=== PATIENT | female | born 1945 | race Caucasian/White ===

== ENCOUNTER → 2016-06-03 12:07 | Outpatient (CLI) | payer MEDICARE, MEDICAID ==
[2015-12-04 10:24] VITALS: BMI 47.9
[~2016-06-03 12:07] MED LIST: ACETAMINOPHEN500 M1 PO; AMBIEN10 MG PO; CELEBREX200 MG PO; COMBIVENT RESPIM4 GM INH; CYCLOBENZAPRINE10 MG PO; CYMBALTA60 MG PO; DIOVAN320 MG PO; GLUCOPHAGE1000 MG PO; HUMULIN R100 U/ML SC; HYDROCODON-ACE1 EAC7 PO; HYDROCODONE-APA1 TAB PO; INSTA-GLUCOSE31 GM PO; OMNICEF300 MG PO; PRAVACHOL40 MG PO; PREDNISONE20 MG PO; PROAIR HFA8.5 GM INH; REQUIP1 MG PO; SINGULAIR10 MG PO; VERELAN180 MG PO
== END | disposition home or self-care (01) ==
LOC: D.RAD 12:07
DX: T17.928A Food in respiratory tract, part unspecified causing other injury, initial encounter (principal)

== ENCOUNTER → 2016-06-17 07:27 | Outpatient (CLI) | payer MEDICARE, MEDICAID ==
[2015-12-04 10:24] VITALS: BMI 47.9
== END ==
LOC: D.RT 06-16 08:00
DX: J44.9 Chronic obstructive pulmonary disease, unspecified (principal)

== ENCOUNTER → 2016-08-20 12:11 | Outpatient (CLI) | payer MEDICARE, MEDICAID ==
[2015-12-04 10:24] VITALS: BMI 47.9
== END | disposition home or self-care (01) ==
LOC: D.RAD 12:11
DX: T17.928A Food in respiratory tract, part unspecified causing other injury, initial encounter (principal)

== ENCOUNTER 2016-09-30 11:02 | Inpatient (IN) | payer MEDICARE, MEDICAID ==
[~2016-09-30] VITALS: Ht 160 cm; Wt 123.8 kg
--- NOTE | 2016-09-30 11:19 | NUR ---
RECEIVED PT TO ROOM 2102 VIA WHEELCHAIR, PT ORIENTED TO ROOM AND CALL LIGHT. INFORMED PT ABOUT THE USE OF SCD'S TO PREVENT BLOOD CLOTS. PT REFUSED TO WEAR SCD'S AT THIS TIME. STATES " I WILL WEAR THEM LATER". WILL DO ASSESSMENT AND START PLAN OF CARE.
[2016-09-30 12:36] VITALS: BP 150/75
[2016-09-30 12:41] VITALS: BP 150/75; Ht 160 cm; Wt 123.8 kg
[2016-09-30 12:45] LABS: BASOPHILS 0.3 % (0-2); EOSINOPHILS 2.1 % (0-7); HEMATOCRIT 33.3 % (36.0-48.0); HEMOGLOBIN 10.2 g/dL (12-16); IMMATURE GRANULOCYTES 0.4 % (0-5); LYMPHOCYTES 12.8 % (15-50); MCH 26.5 pg (26.0-34.0); MCHC 30.6 g/dL (31.0-37.0); MCV 86.5 fL (80.0-100.0); MEAN PLATELET VOLUME 9.3 fL (7.4-10.4); NEUTROPHILS 77.4 % (40-80); RBC 3.85 10x6/uL (4.00-5.40); RDW 15.4 % (11.5-14.5); WBC 9.7 10x3/uL (4.8-10.8)
[2016-09-30 12:46] LABS: PLATELET COUNT 391 10x3/uL (130-400)
[2016-09-30 13:10] LABS: ALKALINE PHOSPHATASE 81 U/L (46-116); ALT (SGPT) 17 U/L (10-68); BILIRUBIN - TOTAL 0.14 mg/dL (0.2-1.3); CALC OSMOLALITY 273 mosm/kg (275-300); CALCIUM 9.4 mg/dL (8.5-10.1); CARBON DIOXIDE 29.7 mmol/L (21.0-32.0); CHLORIDE - SERUM 99 mmol/L (98-107); CREATININE - SERUM 0.7 mg/dL (0.6-1.3); GLUCOSE 128 mg/dL (74-106); MAGNESIUM - SERUM 1.5 mg/dL (1.8-2.4); PROTEIN - SERUM 7.1 g/dL (6.4-8.2); SODIUM 136 mmol/L (136-145); UREA NITROGEN 12 mg/dL (7-18); eGFR NON AFRICAN AMERICAN 87 mL/min (90-120)
[2016-09-30 14:20] LABS: APPEARANCE HAZY (CLEAR); BILIRUBIN NEGATIVE (NEGATIVE); COLOR YELLOW (YELLOW); GLUCOSE NEGATIVE (NEGATIVE); KETONE NEGATIVE (NEGATIVE); LEUKOCYTE ESTERASE TRACE (NEGATIVE); NITRITE NEGATIVE (NEGATIVE); PROTEIN TRACE mg/dL (NEGATIVE); SPECIFIC GRAVITY 1.015 (1.005-1.020); UROBILINOGEN NORMAL (NORMAL)
[2016-09-30] MEDS ORDERED: DALIRESP500 MCG PO (14:21)
[2016-09-30] MEDS ORDERED: NEXIUM40 MG PO (14:22)
[2016-09-30 14:23] LABS: BACTERIA FEW /hpf (NONE SEEN); MUCUS >1+ /lpf (NONE SEEN); RED CELLS - URINE 0-5 /hpf (0-5); WHITE CELLS - URINE 0-5 /hpf (0-5)
--- NOTE | 2016-09-30 14:50 | NUR ---
PT PIV IN R HAND INFILTRATED DC WITH CATH TIP INTACT. RESITED PT TO LEFT FA 22G X1 STICK. DRESSING PLACED AND ADHERED TO THE THE SKIN SIGNED AND DATED. SWAB CAPS IN PLACE.
--- NOTE | 2016-09-30 15:20 | NUR ---
ADMINISTERED 325MG OF TYLENO FOR PAIN LEVEL OF 7/10. PT IN BED, IVF STARTED AGAIN AT THIS TIME. PT DENIES ANY OTHER NEEDS AT THIS TIME. CALL LIGHT IN REACH, NAD NOTED, WILL CONT TO MONITOR.
--- NOTE | 2016-09-30 16:18 | NUR ---
LEFT UPPER ARM IV, INFILTRATED AT THIS TIME. STOPPED IVF AND D/C IV, TIP INTACT, WILL START NEW IV SOON. PT DENIES ANY NEEDS AT THIS TIME. CALL LIGHT IN REACH, NAD NOTED, WILL CONTINUE TO MONITOR.
--- NOTE | 2016-09-30 17:09 | NUR ---
BLOOD SUGAR OF 124, NO COVERAGE NEEDED PER S/S. FAMILY AT BEDSIDE, PT DENIES ANY NEEDS AT THIS TIME. CALL LIIGHT IN REACH, NAD NOTED, WILL CONT TO MONITOR.
[2016-09-30 18:09] VITALS: BP 146/68
[2016-09-30 19:00] VITALS: BP 145/52
--- NOTE | 2016-09-30 19:15 | NUR ---
RECEIVED REPORT, PT MAG -1.5, WILL FOLLOW ELECTROLYTE PROCOL, ASKING FOR TYLENOL, BED IS LOW, SRX2, CALL LIGHT IN REACH, WILL CONTINUE CARE OF PLAN
--- NOTE | 2016-09-30 22:45 | NUR ---
CALL LIGHT IN REACH, WILL CONTINUE WITH PLAN OF CARE.
[2016-10-01] VITALS: BP 124/61
--- NOTE | 2016-10-01 03:45 | NUR ---
ASSESSMENT COMPLETE, SEE FLOWSHEET, BED IS LOW, SRX2, CALL LIGHT IN REACH,WILL CONTINUE PLAN OF CARE
[2016-10-01 04:00] VITALS: BP 125/54
[2016-10-01 05:58] LABS: BASOPHILS 0.2 % (0-2); EOSINOPHILS 2.1 % (0-7); HEMATOCRIT 31.9 % (36.0-48.0); HEMOGLOBIN 9.4 g/dL (12-16); IMMATURE GRANULOCYTES 0.2 % (0-5); LYMPHOCYTES 14.4 % (15-50); MCH 25.6 pg (26.0-34.0); MCHC 29.5 g/dL (31.0-37.0); MCV 86.9 fL (80.0-100.0); MEAN PLATELET VOLUME 9.3 fL (7.4-10.4); MONOCYTES 7.6 % (2-11); NEUTROPHILS 75.5 % (40-80); PLATELET COUNT 409 10x3/uL (130-400); RBC 3.67 10x6/uL (4.00-5.40); RDW 15.3 % (11.5-14.5); WBC 8.4 10x3/uL (4.8-10.8)
[2016-10-01 06:19] LABS: ALBUMIN 2.7 g/dL (3.4-5.0); ANION GAP 10.6 mmol/L (8-16); BILIRUBIN - TOTAL 0.15 mg/dL (0.2-1.3); CALCIUM 9.2 mg/dL (8.5-10.1); CARBON DIOXIDE 33.4 mmol/L (21.0-32.0); CREATININE - SERUM 0.8 mg/dL (0.6-1.3); MAGNESIUM - SERUM 1.5 mg/dL (1.8-2.4); PROTEIN - SERUM 6.5 g/dL (6.4-8.2)
--- NOTE | 2016-10-01 07:18 | NUR ---
AM ROUNDS- PT UP TO SIDE OF BED, ASKED FOR A CUP OF COFFEE. WILL PROVIDED PT WITH ONE. PT DENIES ANY OTHER NEEDS AT THIS TIME. CALL LIGHT IN REACH, NAD NOTED, WILL CONTINUE TO MONITOR.
[2016-10-01 08:06] VITALS: BP 138/72
--- NOTE | 2016-10-01 08:13 | NUR ---
ADMINISTERED MORNING MEDICATONS, PT UP TO SIDE OF BED, EATING BREAKFAST. MARSHALL FROM DIETARY IN TO SPEAK WITH PT. PT DENIES ANY NEEDS AT THIS TIME. CALL LIGHT IN REACH, NAD NOTED, WILL CONTINUE TO MONITOR.
--- NOTE | 2016-10-01 09:47 | NUR ---
NEW 22G IV STARTED TO RT FOREARM, DRESSING PLACED AND ADHERED TO SKIN,SIGNED AND DATED. IVF STARTED BACK UP TO INFUSE AT 75ML/HR. PT C/O HEADACHE ASKED IF SHE COULD HAVE TYLENOL. WILL TAKE TO SEE IF SHE CAN HAVE IT NOW AND WILL PROVIDE HE WITH SOME.
--- NOTE | 2016-10-01 09:51 | NUR ---
ADMINISTERED 650MG OF TYLENOL FOR PAIN LEVEL OF 7/10. PT IN BED, DENIES ANY NEEDS AT THIS TIME. CALL LIGHT IN REACH, NAD NOTED, WILL CONTINUE TO MONITOR.
[2016-10-01 12:12] VITALS: BP 155/72
[2016-10-01 15:56] VITALS: BP 140/53
[2016-10-01 19:00] VITALS: BP 127/58
--- NOTE | 2016-10-01 19:20 | NUR ---
RECEIVED REPORT, PT ASKING FOR TYLENOL, WILL GIVE WHEN TIME, BED IS LOW, SRX2, CALL LIGHT IN REACH, MAG.-1.5 WILL FOLLOW ELECTOLITE PROTOCOL, BED IS LOW, SRX2, CALL LIGHT IN REACH, WILL CONTINUE PLAN OF CARE
--- NOTE | 2016-10-01 20:30 | NUR ---
GAVE 650 MG TYLENOL FOR HEAD ACHE, WILL MONITOR
--- NOTE | 2016-10-01 23:16 | NUR ---
PT RESTING WELL WITHOUT C/O OR DISTRESS NOTED. CALL LIGHT WITHIN REACH. NO NEEDS VOICED. WILL CONT TO MONITOR.
[2016-10-02] VITALS: BP 127/62
[2016-10-02 04:00] VITALS: BP 138/60
[2016-10-02 05:30] LABS: BASOPHILS 0.4 % (0-2); EOSINOPHILS 2.6 % (0-7); HEMATOCRIT 31.1 % (36.0-48.0); HEMOGLOBIN 9.2 g/dL (12-16); IMMATURE GRANULOCYTES 0.4 % (0-5); LYMPHOCYTES 11.8 % (15-50); MCH 25.8 pg (26.0-34.0); MCHC 29.6 g/dL (31.0-37.0); MCV 87.4 fL (80.0-100.0); MEAN PLATELET VOLUME 9.3 fL (7.4-10.4); NEUTROPHILS 77.8 % (40-80); PLATELET COUNT 363 10x3/uL (130-400); RBC 3.56 10x6/uL (4.00-5.40); RDW 15.4 % (11.5-14.5); WBC 8.2 10x3/uL (4.8-10.8)
[2016-10-02 05:47] LABS: ALBUMIN 2.7 g/dL (3.4-5.0); ALKALINE PHOSPHATASE 73 U/L (46-116); ALT (SGPT) 16 U/L (10-68); BILIRUBIN - TOTAL 0.14 mg/dL (0.2-1.3); CALC OSMOLALITY 277 mosm/kg (275-300); CALCIUM 8.9 mg/dL (8.5-10.1); CARBON DIOXIDE 31.8 mmol/L (21.0-32.0); CHLORIDE - SERUM 103 mmol/L (98-107); GLUCOSE 120 mg/dL (74-106); POTASSIUM - SERUM 3.8 mmol/L (3.5-5.1); PROTEIN - SERUM 6.4 g/dL (6.4-8.2); SODIUM 140 mmol/L (136-145); UREA NITROGEN 8 mg/dL (7-18)
[2016-10-02 05:50] LABS: CREATININE - SERUM 0.5 mg/dL (0.6-1.3); eGFR NON AFRICAN AMERICAN > 90 mL/min (90-120)
--- NOTE | 2016-10-02 07:00 | NUR ---
RECEIVED REPORT. ASSUMED CARE OF PATIENT. CALL LIGHT KAMILAH ÁLVAREZ. PATIENT SITTING UP IN BED WITH ATTENTION TOWARD TELEVISON. ALERT/ORIENTED. DENIES NEEDS AT THIS TIME. NO DISTRESS.
[2016-10-02 08:26] VITALS: BP 133/57
[2016-10-02 11:58] VITALS: BP 150/62
[2016-10-02 15:53] VITALS: BP 141/50
--- NOTE | 2016-10-02 15:56 | NUR ---
PATIENT NOTIFIED OF THE NEED FOR A STOOL SAMPLE. HAT PLACED ON TOILET. PATIENT VERBALIZED HER UNDERSTANDING.
[2016-10-02 16:05] LABS: % SATURATION 9 % (15-55); IRON 26 ug/dl (35-150); TOTAL IRON BIND CAPACITY 267 ug/dl (260-445); UNSAT IRON BIND CAPACITY 241 ug/dl (150-375)
--- NOTE | 2016-10-02 19:00 | NUR ---
INITIAL ROUNDS MADE. PT SITTING UP IN BED WATCHING TV. DENIES NEEDS OR C/O AT THIS TIME. STOOL COLLECTED AND TAKEN TO LAB FOR OB. CALL LIGHT IN REACH. WILL CONT TO MONITOR.
[2016-10-02 20:20] VITALS: BP 148/73
[2016-10-03 00:09] VITALS: BP 124/52
[2016-10-03 04:15] VITALS: BP 154/79
--- NOTE | 2016-10-03 05:55 | NUR ---
PHLEBO IN ROOM FOR AM LAB DRAW.
[2016-10-03 06:10] LABS: BASOPHILS 0.2 % (0-2); EOSINOPHILS 2.7 % (0-7); HEMATOCRIT 31.7 % (36.0-48.0); HEMOGLOBIN 9.4 g/dL (12-16); IMMATURE GRANULOCYTES 0.2 % (0-5); LYMPHOCYTES 10.8 % (15-50); MCHC 29.7 g/dL (31.0-37.0); MCV 87.8 fL (80.0-100.0); MEAN PLATELET VOLUME 9.4 fL (7.4-10.4); MONOCYTES 7.7 % (2-11); NEUTROPHILS 78.4 % (40-80); PLATELET COUNT 410 10x3/uL (130-400); RBC 3.61 10x6/uL (4.00-5.40); RDW 15.5 % (11.5-14.5); WBC 8.5 10x3/uL (4.8-10.8)
[2016-10-03 06:35] LABS: ALBUMIN 2.8 g/dL (3.4-5.0); ALKALINE PHOSPHATASE 75 U/L (46-116); ALT (SGPT) 16 U/L (10-68); CALC OSMOLALITY 277 mosm/kg (275-300); CALCIUM 9.2 mg/dL (8.5-10.1); CHLORIDE - SERUM 101 mmol/L (98-107); CREATININE - SERUM 0.6 mg/dL (0.6-1.3); GLUCOSE 114 mg/dL (74-106); POTASSIUM - SERUM 3.7 mmol/L (3.5-5.1); PROTEIN - SERUM 6.6 g/dL (6.4-8.2); SODIUM 140 mmol/L (136-145); UREA NITROGEN 6 mg/dL (7-18); eGFR NON AFRICAN AMERICAN > 90 mL/min (90-120)
--- NOTE | 2016-10-03 07:10 | NUR ---
RECEIVED REPORT. ASSUMED CARE OF PATIENT. PATIENT SITTING UP IN BED HAVING COFFEE. RESP EVEN AND UNLABORED. CALL LIGHT WITHIN REACH. IV FLUIDS INFUSING ORDERED. DENIES NEEDS AT THIS TIME. NO DISTRESS.
[2016-10-03 07:23] VITALS: BP 150/81
--- NOTE | 2016-10-03 10:00 | NUR ---
PATIENT OOB AMBULATING WITH WALKER WITH PHYSICAL THERAPY. TOLERATES THERAPY WELL.
[2016-10-03 12:09] VITALS: BP 151/71
--- NOTE | 2016-10-03 15:53 | NUR ---
IV TUBING CHANGED, IV SITE DRESSING CHANGED AT THIS TIME. JLOOP RETAPED TO BETTER ACCOMODATE PATIENT. NO DISTRESS. DENIES NEEDS AT THIS TIME.
[2016-10-03 16:10] VITALS: BP 148/86
--- NOTE | 2016-10-03 16:34 | NUR ---
FSBS 103. NO INSULIN COVERAGE REQUIRED. NO DISTRESS.
--- NOTE | 2016-10-03 19:00 | NUR ---
INITIAL ROUNDS MADE. PT SITTING UP ON SIDE OF BED WATCHING TV. DENIES NEEDS OR C/O AT THIS TIME. CALL LIGHT IN REACH. WILL CONT TO MONITOR.
[2016-10-03 21:38] VITALS: BP 145/67
--- NOTE | 2016-10-04 00:27 | NUR ---
ELIGIBILITY SUPERVISOR AT BEDSIDE FOR VS. NEEDS ADDRESSED AT THIS TIME. CALL LIGHT IN REACH. WILL CONT TO MONITOR.
[2016-10-04 03:13] VITALS: BP 126/54
--- NOTE | 2016-10-04 04:58 | NUR ---
RESTING WELL WITH EYES CLOSED, CONT TO MONITOR.
[2016-10-04 05:43] LABS: BASOPHILS 0.2 % (0-2); EOSINOPHILS 2.7 % (0-7); HEMATOCRIT 32.5 % (36.0-48.0); HEMOGLOBIN 9.6 g/dL (12-16); IMMATURE GRANULOCYTES 0.4 % (0-5); LYMPHOCYTES 12.2 % (15-50); MCH 25.9 pg (26.0-34.0); MCHC 29.5 g/dL (31.0-37.0); MCV 87.8 fL (80.0-100.0); MEAN PLATELET VOLUME 9.6 fL (7.4-10.4); NEUTROPHILS 77.5 % (40-80); PLATELET COUNT 436 10x3/uL (130-400); RDW 15.5 % (11.5-14.5); WBC 8.5 10x3/uL (4.8-10.8)
[2016-10-04 06:33] LABS: ALBUMIN 2.8 g/dL (3.4-5.0); ALKALINE PHOSPHATASE 77 U/L (46-116); ALT (SGPT) 18 U/L (10-68); BILIRUBIN - TOTAL 0.18 mg/dL (0.2-1.3); CALC OSMOLALITY 275 mosm/kg (275-300); CALCIUM 9.1 mg/dL (8.5-10.1); CHLORIDE - SERUM 101 mmol/L (98-107); CREATININE - SERUM 0.7 mg/dL (0.6-1.3); GLUCOSE 104 mg/dL (74-106); POTASSIUM - SERUM 3.6 mmol/L (3.5-5.1); PROTEIN - SERUM 6.8 g/dL (6.4-8.2); SODIUM 140 mmol/L (136-145); UREA NITROGEN 5 mg/dL (7-18); eGFR NON AFRICAN AMERICAN 87 mL/min (90-120)
[2016-10-04 06:46] VITALS: BP 138/71
--- NOTE | 2016-10-04 07:58 | NUR ---
AM ROUNDS - PT IS AWAKE AND SITTING ON THE SIDE OF THE BED. IV TO RIGHT RA WITH NS @ 75CC/HR. O2 @ 3L VIA NC. NON SKID SOCKS ON. NO NEEDS AT THIS TIME. WILL CONTINUE TO MONITOR
[2016-10-04 08:25] VITALS: BP 113/54
--- NOTE | 2016-10-04 11:48 | NUR ---
Patient Name: EMILY ORTEGA Admission Status: Urgent Accout number: [id number] Admission Date: 09-30-2016 : 1945 Admission Diagnosis:CHRONIC OBSTRUCTIVE PULMON DISEASE W ACUTE LOWER RESP I Attending: WAGNER Current LOS: 4 Anticipated DC Date: 10-04-2016 Planned Disposition: Home Primary Insurance: [facility] Discharge Planning Comments: CM met with patient to assess discharge planning/needs. Patient states she lives alone in [facility] and uses the elevator. Patient also states that she has Shari Corona with [employer] that comes out to her house 2 days a week, along with a family member who lives in the same building if she needed anything and her daughter Leora Villarreal ([phone]) who is just a phone call away. She had already called her daughter to drive her home, because she is being discharge. Patient currently uses [facility] for her home O2. Patient stated that she has a cane, walker, shower chair, elevated toilet seat, bed side commode, along with a glucometer. Pt denies any other needs or HH at this time and she is returning to a safe environment. Television Presenter: Radha Guardado * Is the patient Alert and Oriented? Yes 0 * How many steps to enter\exit or inside your home? 0 0 * Preadmission Environment Home Alone 0 * ADLs Independent 0 * Equipment Cane Elevated [place] Seat Glucometer Oxygen Rolling Walker Shower Chair Walker 0 * List name and contact numbers for known caregivers / representatives who currently or will assist patient after discharge: Modesta Villarreal (daughter) [phone] Shari Corona (senior helper) 2 days a week 0 * Community resources currently utilized Other 0 * Please name any agencies selected above. [employer] 0 * Additional services required to return to the preadmission environment? No 0 * Can the patient safely return to the preadmission environment? Yes 0 * Has this patient been hospitalized within the prior 30 days at any hospital? No 0 Grand Total: 0
[2016-10-04] MEDS ORDERED: BREO ELLIPTA 11 EACH INH (12:01)
[2016-10-04] MEDS ORDERED: ARAVA10 MG PO (12:01)
[2016-10-04] MEDS ORDERED: PLAQUENIL200 MG PO (12:02)
[2016-10-04] MEDS ORDERED: OMNICEF300 MG PO (12:03)
[2016-10-04 13:03] VITALS: BP 150/66
--- NOTE | 2016-10-04 14:02 | NUR ---
D/C - WRITTEN AND VERBAL INSRUCTIONS GIVEN TO PT. PT D/C HOME WITH FAMILY MEMBER. LEFT FLOOR VIA WHEELCHAIR BY STAFF MEMBER. IV IN RIGHT FA, NS @ 75CC/HR. WILL D/C
[2016-10-05 08:22] LABS: FOLATE (FOLIC ACID) - SERUM 7.7 ng/mL (>3.0)
== END 2016-10-04 14:32 | disposition home or self-care (01) | DRG 190 ==
LOC: D.M2 11:02
PROVIDERS: ADMIT Family Medicine
DX: J44.0 Chronic obstructive pulmonary disease with (acute) lower respiratory infection (principal); J18.1 Lobar pneumonia, unspecified organism; Z68.42 Body mass index [BMI] 45.0-49.9, adult; I10 Essential (primary) hypertension; E78.5 Hyperlipidemia, unspecified; E66.01 Morbid (severe) obesity due to excess calories; D64.9 Anemia, unspecified; Z99.81 Dependence on supplemental oxygen

== ENCOUNTER 2016-10-18 21:02 | Emergency (ER) | payer MEDICARE, MEDICAID ==
[2016-09-30 12:41] VITALS: BMI 47.2
[~2016-10-18 21:02] MED LIST changes: +ARAVA10 MG PO; +BREO ELLIPTA 11 EACH INH; +DALIRESP500 MCG PO; +NEXIUM40 MG PO; +PLAQUENIL200 MG PO
== END 2016-10-18 23:14 | disposition home or self-care (01) ==
LOC: D.ER 21:02
DX: T46.7X5A Adverse effect of peripheral vasodilators, initial encounter (principal); J44.9 Chronic obstructive pulmonary disease, unspecified; I10 Essential (primary) hypertension; E11.9 Type 2 diabetes mellitus without complications; F17.200 Nicotine dependence, unspecified, uncomplicated

== ENCOUNTER → 2017-01-13 18:54 | Outpatient (CLI) | payer MEDICARE, MEDICAID ==
[2016-09-30 12:41] VITALS: BMI 47.2
== END | disposition home or self-care (01) ==
LOC: D.MAMMO 15:15
DX: Z12.31 Encounter for screening mammogram for malignant neoplasm of breast (principal)

== ENCOUNTER 2017-01-31 07:10 | Day surgery (SDC) | payer MEDICARE, MEDICAID ==
[~2017-01-31] VITALS: Ht 160 cm; Wt 118.2 kg
--- NOTE | ~2017-01-31 | OP ---
PATIENT NAME: EMILY ORTEGA MEDICAL RECORD: [id number] :44 LOCATION:[facility] ADMISSION DATE: SURGEON: TORIN DEAN DO DATE OF OPERATION: 01/31/2017 PROCEDURE: EGD with biopsies. INDICATIONS FOR PROCEDURE: Heartburn, nausea, epigastric abdominal pain. SCOPE: Olympus video gastroscope. MEDICATIONS: Propofol 100 mg IV per anesthesia. ESTIMATED BLOOD LOSS: Minimal. COMPLICATIONS: None. FINDINGS: Informed consent was given. The patient was made comfortable with the above medication. After reaching an adequate level of sedation by slow IV push, the patient was placed on her left side. The endoscope was then advanced under direct visualization through the mouth to the second portion of the duodenum. The entire esophagus appeared normal. At the GE junction, there was some very mild evidence of LA class A reflux-induced esophagitis. There was a medium-sized hiatal hernia involving the cardia, which was visible from the esophagus as well as retroflexion within the stomach. The fundus and body of the stomach appeared normal. In the antrum and prepyloric region, there was some erythema and granularity consistent with possible gastritis. Random biopsies were taken to submit for histology and to rule out H pylori. The endoscope was advanced beyond the pylorus into the duodenum where the bulb and second portion of the duodenum appeared normal. The endoscope was then withdrawn from the patient. The patient tolerated the procedure well and there were no complications. IMPRESSION: 1. LA class A reflux-induced esophagitis. 2. Medium size sliding hiatal hernia involving the cardia. 3. Erythema and granularity of the antrum consistent with possible gastritis, biopsies pending. PLAN AND RECOMMENDATIONS: 1. Discharge home when recovery parameters are met. 2. Follow up biopsy specimen results. 3. GERD diet and reflux precautions. 4. Consider referral to general surgery for further correction of the hiatal hernia, which is likely causing some of the patient's discomfort in her epigastric region. 5. Gastric emptying study regarding the nausea and abdominal pain and early satiety and fullness. 6. Further recommendations to follow findings from biopsies and radiologic studies. 7. Consider colonoscopy regarding the diarrhea, which is chronic. TRANSINT: Voice Confirmation ID: [id number] DOCUMENT ID: [id number] OPERATIVE REPORT [id number] EMILY ORTEGA TORIN DEAN DO CC: [id number] DICTATION DATE: 01/31/17 1126 FANS CLERK: 01/31/17 1322 [facility] 01/31/17 [place] [id number] [place] [id number]
[2017-01-31 08:51] LABS: CALC OSMOLALITY 274 mosm/kg (275-300); CARBON DIOXIDE 30.3 mmol/L (21.0-32.0); CHLORIDE - SERUM 99 mmol/L (98-107); CREATININE - SERUM 0.7 mg/dL (0.6-1.3); GLUCOSE 109 mg/dL (74-106); SODIUM 137 mmol/L (136-145); UREA NITROGEN 12 mg/dL (7-18); eGFR NON AFRICAN AMERICAN 87 mL/min (90-120)
[2017-01-31 08:52] LABS: BASOPHILS 0.3 % (0-2); HEMATOCRIT 32.1 % (36.0-48.0); HEMOGLOBIN 9.9 g/dL (12-16); IMMATURE GRANULOCYTES 0.1 % (0-5); LYMPHOCYTES 16.1 % (15-50); MCH 25.4 pg (26.0-34.0); MCHC 30.8 g/dL (31.0-37.0); MCV 82.5 fL (80.0-100.0); NEUTROPHILS 73.5 % (40-80); PLATELET COUNT 371 10x3/uL (130-400); RBC 3.89 10x6/uL (4.00-5.40); RDW 15.8 % (11.5-14.5); WBC 7.7 10x3/uL (4.8-10.8)
[2017-01-31 09:09] VITALS: BP 137/59; Ht 160 cm; Wt 118.2 kg
--- NOTE | 2017-01-31 11:35 | NUR ---
1135- PT RECEIVED SITTING UP WITH HOB ELEVATED. AAO. 2L O2 NC IN PLACE. VSS. FULL LIQUIDS OFFERED. FAMILY AT BEDSIDE WILL MONITOR.
--- NOTE | 2017-01-31 12:10 | NUR ---
1205- IV D/C'D, PT TOLERATED. CATHETER INTACT. WILL CONTINUE TO MONITOR.
--- NOTE | 2017-01-31 12:31 | NUR ---
1225- DISCHARGE INSTRUCTIONS GIVEN, PT VERBALIZED UNDERSTANDING. PAPERWORK COMPLETED. 1230- PT DISCHARGED VIA WHEELCHAIR
== END 2017-01-31 12:30 | disposition home or self-care (01) ==
LOC: D.OPS 07:10
PROVIDERS: Anesthesiology
DX: R10.13 Epigastric pain (principal); R11.0 Nausea; K21.0 Gastro-esophageal reflux disease with esophagitis; K44.9 Diaphragmatic hernia without obstruction or gangrene; F17.200 Nicotine dependence, unspecified, uncomplicated; I10 Essential (primary) hypertension; E11.9 Type 2 diabetes mellitus without complications; J44.9 Chronic obstructive pulmonary disease, unspecified; Z01.812 Encounter for preprocedural laboratory examination

== ENCOUNTER → 2017-02-03 13:45 | Outpatient (CLI) | payer MEDICARE, MEDICAID ==
[2017-01-31 09:09] VITALS: BMI 46.1
== END | disposition home or self-care (01) ==
LOC: D.NM 13:45
DX: R11.10 Vomiting, unspecified (principal); R10.9 Unspecified abdominal pain

== ENCOUNTER 2017-02-07 05:40 | Day surgery (SDC) | payer MEDICARE, MEDICAID ==
[~2017-02-07] VITALS: Ht 160 cm; Wt 118.2 kg
--- NOTE | ~2017-02-07 | OP ---
PATIENT NAME: EMILY ORTEGA MEDICAL RECORD: [id number] :44 LOCATION:[facility] ADMISSION DATE: SURGEON: TORIN DEAN DO DATE OF OPERATION: 02/07/2017 PROCEDURE: Colonoscopy with polypectomy and random biopsies. INDICATIONS FOR PROCEDURE: Altered bowel function and family history positive for colon cancer with her sister being diagnosed in her 60s. SCOPE: Olympus video pediatric colonoscope. MEDICATIONS: Propofol 1100mg IV per anesthesia. WITHDRAWAL TIME: 59 minutes. COMPLICATIONS: None. ESTIMATED BLOOD LOSS: Minimal. FINDINGS: Informed consent was given. The patient was made comfortable with the above medication. After reaching an adequate level of sedation by slow IV push, the patient was placed on her left side. A digital rectal examination was performed and was normal other than some small nonbleeding external hemorrhoids visualized. The endoscope was then advanced under direct visualization through the rectum to the cecum with visualization of the appendiceal orifice and ileocecal valve. The scope was slowly withdrawn and mucosa was carefully examined. Prep quality was good. There was evidence of moderate pandiverticulosis on this colonoscopy. Retroflexion was performed in the rectum with visualization of small nonbleeding internal hemorrhoids. On this examination, there were a total of 16 polyps removed. One was located in the cecum and it was a benign and sessile appearing polyp measuring approximately 3 mm in diameter. It was removed using hot forceps in 1 piece and completely retrieved. In the ascending colon, there were 2 other polyps, which were benign-appearing and sessile ranging in size from 3-5 mm in diameter. They were both removed using hot forceps in 1 piece and completely retrieved. In the transverse colon, there were seven separate polyps, which ranged in size from 5mm-12mm. They were all removed using hot snare in 1 piece and completely retrieved. In the descending colon, there were 5 polyps which ranged in size from 5mm-13mm in diameter. They were all removed using a hot snare in 1 piece and completely retrieved. In the rectum, there was a single polyp which was benign appearing and sessile, measuring approximately 5 mm in diameter. It was removed using a hot snare in 1 piece and completely retrieved. One of the ascending polyps left a small defect, which was closed with an Endoclip to prevent a complication. This was not a perforation and this was done simply to prevent post-polypectomy bleeding and complications due to the thin wall on that side of the colon. TRANSINT:[id number] Voice Confirmation ID: [id number] DOCUMENT ID: [id number] OPERATIVE REPORT [id number] EMILY ORTEGA NATHAN A DO CC: [id number] DICTATION DATE: 02/07/17936 OPHTHALMIC TECHNICIAN APPRENTICE: 02/07/17 1045 [facility] 02/07/17 [facility] [address] [place] [id number]
[2017-02-07 06:13] VITALS: BP 122/47; Ht 160 cm; Wt 118.2 kg
[2017-02-07 06:41] LABS: HEMATOCRIT 31.9 % (36.0-48.0); HEMOGLOBIN 9.9 g/dL (12-16); MCH 25.6 pg (26.0-34.0); MCV 82.4 fL (80.0-100.0); RBC 3.87 10x6/uL (4.00-5.40); RDW 15.8 % (11.5-14.5); WBC 7.8 10x3/uL (4.8-10.8)
[2017-02-07 07:03] LABS: CALC OSMOLALITY 273 mosm/kg (275-300); CALCIUM 9.7 mg/dL (8.5-10.1); CARBON DIOXIDE 30.6 mmol/L (21.0-32.0); CHLORIDE - SERUM 100 mmol/L (98-107); CREATININE - SERUM 0.5 mg/dL (0.6-1.3); GLUCOSE 118 mg/dL (74-106); POTASSIUM - SERUM 3.6 mmol/L (3.5-5.1); SODIUM 138 mmol/L (136-145); UREA NITROGEN 5 mg/dL (7-18); eGFR NON AFRICAN AMERICAN > 90 mL/min (90-120)
--- NOTE | 2017-02-07 10:03 | NUR ---
1000-RECD FROM GI LAB, ALERT. RESP WITH EASE. UP TO BATHROOM, VOIDS AND PASSES GAS. 1003-FULL LIQUIDS SERVED.
== END 2017-02-07 10:34 | disposition home or self-care (01) ==
LOC: D.OPS 05:40
PROVIDERS: Anesthesiology
DX: K63.5 Polyp of colon (principal); Z80.0 Family history of malignant neoplasm of digestive organs; I10 Essential (primary) hypertension; E11.9 Type 2 diabetes mellitus without complications; J44.9 Chronic obstructive pulmonary disease, unspecified; K21.9 Gastro-esophageal reflux disease without esophagitis; E66.01 Morbid (severe) obesity due to excess calories; Z68.42 Body mass index [BMI] 45.0-49.9, adult; Z01.812 Encounter for preprocedural laboratory examination; K62.1 Rectal polyp

== ENCOUNTER 2017-02-20 19:08 | Inpatient (IN) | payer MEDICARE, MEDICAID ==
[2017-02-20 20:10] LABS: BASOPHILS 0.1 % (0-2); EOSINOPHILS 0.4 % (0-7); HEMATOCRIT 32.4 % (36.0-48.0); HEMOGLOBIN 10.2 g/dL (12-16); IMMATURE GRANULOCYTES 0.3 % (0-5); LYMPHOCYTES 7.2 % (15-50); MCH 25.5 pg (26.0-34.0); MCHC 31.5 g/dL (31.0-37.0); MEAN PLATELET VOLUME 8.9 fL (7.4-10.4); MONOCYTES 7.8 % (2-11); NEUTROPHILS 84.2 % (40-80); PLATELET COUNT 359 10x3/uL (130-400); RDW 15.6 % (11.5-14.5); WBC 16.6 10x3/uL (4.8-10.8)
[2017-02-20 20:38] LABS: ALBUMIN 3.1 g/dL (3.4-5.0); ALKALINE PHOSPHATASE 81 U/L (46-116); ALT (SGPT) 15 U/L (10-68); CALC OSMOLALITY 268 mosm/kg (275-300); CALCIUM 9.1 mg/dL (8.5-10.1); CARBON DIOXIDE 30.5 mmol/L (21.0-32.0); CHLORIDE - SERUM 96 mmol/L (98-107); CREATININE - SERUM 0.8 mg/dL (0.6-1.3); GLUCOSE 158 mg/dL (74-106); POTASSIUM - SERUM 4.2 mmol/L (3.5-5.1); PROTEIN - SERUM 6.4 g/dL (6.4-8.2); SODIUM 132 mmol/L (136-145); UREA NITROGEN 14 mg/dL (7-18); eGFR NON AFRICAN AMERICAN 75 mL/min (90-120)
[2017-02-20 20:40] LABS: CREATINE KINASE 32 UL (21-215); MAGNESIUM - SERUM 1.5 mg/dL (1.8-2.4); PRO BNP 236 pg/mL (0-125); TROPONIN-I < 0.017 ng/mL (0.000-0.060)
--- NOTE | 2017-02-20 23:12 | NUR ---
REPORT RECEIVED FROM ADRIANNA BURKETT. KWADWO STATES PT HAS RECEIVED LASIX 40MG AND IS CURRENTLY RECEIVING MAG 2MG RIDERS, AND WILL HANG THE LEVAQUIN AFTER THE MAGNESIUM IS COMPLETE. CURRENTLY WAITING FOR PTS ARRIVAL.
[2017-02-20 23:37] LABS: APPEARANCE CLEAR (CLEAR); BILIRUBIN NEGATIVE (NEGATIVE); COLOR YELLOW (YELLOW); GLUCOSE NEGATIVE (NEGATIVE); KETONE NEGATIVE (NEGATIVE); NITRITE NEGATIVE (NEGATIVE); PROTEIN NEGATIVE (NEGATIVE); UROBILINOGEN NORMAL (NORMAL)
[2017-02-20 23:54] VITALS: BP 115/55; BMI 38.1
[2017-02-21] VITALS (7 sets, daily range): BP systolic 101–145; BP diastolic 48–75; BMI 38.0
--- NOTE | 2017-02-21 00:43 | NUR ---
PT RECEIVED VIA STRETCHER FROM ER @ 0290 02/20/17 AWAKE, ALERT, ORIENTED. PT WAS ABLE TO AMBULATE WITH ASSIST FROM STRETCHER TO BED. PT DEMONSTRATES GENERALIZED WEAKNESS WITH INCREASED SOB. PT ASKED FROM WATER, AND WAS ASSISTED TO BEDSIDE COMMODE. PT DENIES ANY OTHER NEEDS. PER NEW ORDER, WILL HOLD PT NPO. CONTINUE TO MONITOR CLOSELY. BED LOW, CALL LIGHT IN REACH, SIDE RAILS X 2, HOB 35 DEGREES.
--- NOTE | 2017-02-21 00:50 | NUR ---
PT IS C/O HEADACHE, NOTHING GIVEN IN ER. MEDICAL DEVICE, GLENNA RUBIO NOTIFIED FOR FURTHER ORDERS. TYLENOL #3 ORDERED PRN. WILL ADMINISTER AND CONTINUE TO MONITOR CLOSELY.
[2017-02-21] MEDS ORDERED: REGLAN5 MG PO (00:54)
--- NOTE | 2017-02-21 01:27 | NUR ---
DISCUSSED WITH PT THE ORDER FOR NPO STATUS R/T POSSIBLE UPCOMING BRONCH LATER THIS MORNING. PT AGREED THAT SHE WOULD NOT EAT OR DRINK ANYTHING FURTHER. CONTINUE TO MONITOR.
[2017-02-21] MEDS ORDERED: TYLENOL W/CODEI1 TAB PO (03:09)
--- NOTE | 2017-02-21 03:30 | NUR ---
PT LYING ON LEFT SIDE, EYES CLOSED, RESPIRATIONS EVEN AND UNLABORED. CONTINUE TO MONITOR CLOSELY.
--- NOTE | 2017-02-21 07:15 | NUR ---
RECIEVED REPORT ON PATIENT, PATIENT IS ALERT AND ORIENTED AT THIS TIME. PATIENT HAS A R HAND IV THAT IS SL AT THIS TIME. PATIENT IS ON 3L/MIN VIA NC OF O2 WITH NAD NOTED AT THIS TIME. PATIENT DENIES ANY NEEDS OR COMPLAINTS AT THIS TIME. BED IS LOW AND LOCKED. CALL LIGHT IN REACH. CPOC
--- NOTE | 2017-02-21 09:15 | NUR ---
MORNING MEDICATION GIVEN, ASSESSMENT DONE. PATIENT DENIES ANY NEEDS. BED LOW AND LOCKED, CALL LIGHT IN REACH. CPOC.
--- NOTE | 2017-02-21 10:00 | NUR ---
SPOKE WITH DR BELL REGARDING PATIENT, AND HIS CONSULT.
--- NOTE | 2017-02-21 11:17 | NUR ---
ASSISTED PATIENT TO BEDSIDE COMMODE. SOB ON EXERTION. O2 SAT 94% ON 3L/MIN VIA NC. WILL CONT TO MONITOR PATIENT. PATIENT BACK TO BED. BED LOW AND LOCKED. FAMILY AT BEDSIDE. CPOC
--- NOTE | 2017-02-21 11:46 | NUR ---
PATIENT REFUSES SCDS AT THIS TIME. STATES SHE "IS GETTING UP TO THE BATHROOM TOO MUCH BECAUSE OF THE LASIX" WE DISCUSSED THAT SHE WOULD WEAR AT NIGHT WHEN SLEEPING. CPOC
--- NOTE | 2017-02-21 12:45 | NUR ---
PATIENT PREOP FOR SURGERY. CONSENTS SIGNED. CPOC
--- NOTE | 2017-02-21 12:50 | NUR ---
PATIENT GONE FOR SURGERY. CPOC
--- NOTE | 2017-02-21 14:46 | NUR ---
INFORMED NEISHA BROUSSARD THAT MEDS HAVE NOT BEEN ADDRESSED, SHE STATED THAT WHEN PATIENT GETS BACK FROM SURGERY, SHE WOULD ADDRESS.
--- NOTE | 2017-02-21 15:48 | OP ---
PATIENT NAME: EMILY ORTEGA MEDICAL RECORD: [id number] :44 LOCATION:[facility]. D.2131 ADMISSION DATE:02/20/17 SURGEON: SANDRA BELL MD DATE OF OPERATION: 02/21/2017 SURGEON: Sandra Bell MD PREOPERATIVE DIAGNOSES: 1. Left pleural effusion. 2. Complete collapse of the left lung. 3. Right mainstem occlusion. POSTOPERATIVE DIAGNOSES: 1. Left pleural effusion. 2. Complete collapse of the left lung. 3. Right mainstem occlusion. PROCEDURE PERFORMED: 1. Bronchoscopy. 2. Left chest tube thoracostomy. ANESTHESIA: General. COMPLICATIONS: None. SPECIMENS: 1. Pleural cytology. 2. Pleural cultures. 3. Tracheal cytology. Case is contaminated. ESTIMATED BLOOD LOSS: 20 cc. OPERATIVE COURSE: After consent was obtained, the patient was taken to the operating room and placed in the supine position on the operative table. Next, general anesthesia was given via endotracheal intubation. After a timeout was taken to confirm the correct patient and procedure, the left chest wall was prepped and draped in normal sterile fashion. A 20 cc of local anesthetic were administered. Skin incisions made with a 15-blade scalpel. Dissection continued down to the level of the pleural fascia using electrocautery. The fourth and fifth ribs were identified. The pleural space was encountered. There was immediate return of 600 cc of pleural fluid. Pleural fluid was collected and sent for both cytology and microbiology. A 32-Indonesian chest tube was placed towards the apex of the chest and then secured to the skin using 0 silk suture. It was wrapped in Xeroform gauze, sterile gauze, and tape. The chest tube was connected to a Pleur-Evac device and secured. Next, the bronchoscope was passed down to the 8-Indonesian ET tube into the main stem bronchus. The right mainstem was evaluated. The right upper and right lower lobe were both patent. The scope was advanced in the left lobe. There was almost near complete stenosis of the left main stem bronchus. The lesion was able to be visualized when sterile saline was injected, but the scope could not pass across the lesion. A wire was passed across the lesion. The area was copiously suctioned. The Lukens trap was attached, air was suctioned and irrigated. Biopsies could not be obtained secondary to the friability of the OPERATIVE REPORT [id number] EMILY ORTEGA lesion. At this time, the lesion was copiously irrigated and suctioned. The bronchoscope was removed, the procedure was terminated. At the end of the case, all needle and instrument counts were correct. No complications occurred. The patient was extubated and transferred to the PACU in stable condition. TRANSINT:[id number] Voice Confirmation ID: [id number] DOCUMENT ID: [id number] SANDRA BELL MD at 1548 CC: [id number] DICTATION DATE: 02/21/17 1423 ONCOLOGY REP SPECIALIST: 02/21/17 1449 ADM IN [facility] [address] [id number]
--- NOTE | 2017-02-21 15:50 | NUR ---
PATIENT BACK TO ROOM, PATIENT IS ALERT AND ORIENTED AT THIS TIME. PATIENT IS ON 10L/MIN VIA OXIMIZER, O2 SAT 94%. PATIENT HAS A CHEST TUBE TO L CHEST WITH 100CC OF PINK FLUID IN DRAINAGE CHAMBER. PATIENT DENIES ANY NEEDS OR PAIN. PATIENT HOOKED UP TO FREQUENT VITAL SIGNS. WILL CONT TO MONITOR PATIENT. CPOC
--- NOTE | 2017-02-21 16:03 | NUR ---
TRIED TO DC RR ORDERS TOOK ME TOTALLY OUT OF CHART 4 TIMES
--- NOTE | 2017-02-21 16:45 | NUR ---
FSBS 170, 2 UNITS OF HUMALOG GIVEN. CPOC
--- NOTE | 2017-02-21 18:05 | NUR ---
PATIENT GIVEN TYLENOL 3 FOR PAIN 9/10 AT CHEST TUBE SITE. PATIENT DENIES ANY OTHER NEEDS. VS STABLE AT THIS TIME. BP 122/69 RR 20 O2 SAT 96% HR 103. CPOC
--- NOTE | 2017-02-21 19:10 | NUR ---
ROUNDING NOTE: PT LAYING IN BED AWAKE, ALERT, ORIENTED X3. OXYGEN 10L VIA HIGH FLOW OXYMIZER NASAL CANNULA. PT W/ LEFT CHEST TUBE D/T COMPLETE LEFT LUNG COLLAPSE. YANKAUER SUCTION AT BEDSIDE. RIGHT HAND SALINE LOC. PT REQUESTING BEDPAN, BUT WAS ALREADY INCONTINENT OF STOOL. DID VOID X1 IN BEDPAN WELL. PT CLEANED UP, DID BECOME SOB WITH BED MOBILITY. NOW LAYING IN BED COMFORTABLE. DENIES ANY NEEDS. WILL CONT TO MONITOR.
[2017-02-22] VITALS: BP 99/49
[2017-02-22 04:10] VITALS: BP 111/53
[2017-02-22 04:50] LABS: HEMATOCRIT 31.9 % (36.0-48.0); HEMOGLOBIN 10.1 g/dL (12-16); MCH 25.3 pg (26.0-34.0); MCHC 31.7 g/dL (31.0-37.0); MCV 79.9 fL (80.0-100.0); MEAN PLATELET VOLUME 9.4 fL (7.4-10.4); PLATELET COUNT 398 10x3/uL (130-400); RBC 3.99 10x6/uL (4.00-5.40); RDW 15.7 % (11.5-14.5); WBC 21.6 10x3/uL (4.8-10.8)
[2017-02-22 05:19] LABS: ANION GAP 12.7 mmol/L (8-16); CALCIUM 8.9 mg/dL (8.5-10.1); CREATININE - SERUM 0.9 mg/dL (0.6-1.3); MAGNESIUM - SERUM 1.6 mg/dL (1.8-2.4); PHOSPHOROUS 3.5 mg/dL (2.5-4.9); POTASSIUM - SERUM 3.7 mmol/L (3.5-5.1)
[2017-02-22 05:52] LABS: LYMPHOCYTES 4 % (15-50); MONOCYTES 3 % (2-11); NEUTROPHILS 92 % (40-80); PLATELET ESTIMATE NORMAL
--- NOTE | 2017-02-22 07:30 | NUR ---
RECEIVED PT IN BED RESTING WITH EYES CLOSED RESP UNLABORED O2 ON PER 10 LITER PER OXIMIZER NAD NOTED
[2017-02-22 07:55] VITALS: BP 153/87
[2017-02-22 11:22] VITALS: BP 87/49
--- NOTE | 2017-02-22 11:53 | NUR ---
FSBS 190 HUMALOG 2 UNITS GIVEN SQ LT ARM
[2017-02-22 15:55] VITALS: BP 139/51
--- NOTE | 2017-02-22 16:57 | NUR ---
FSBS 142
--- NOTE | 2017-02-22 16:58 | NUR ---
FSBS 174 PT NPO AT THIS TIME
[2017-02-22 19:00] VITALS: BP 84/42
--- NOTE | 2017-02-22 19:10 | NUR ---
ROUNDING NOTE: PT IS AAOX3. PT IS BACK UP TO 10L OXYGEN VIA HIGH FLOW NASAL CANNULA OXYMIZER. ON MONITOR, SHE IS SINUS TACHY IN 100-120'S. PT CONTINUES TO BE VERY SOB WITH MINIMAL EXERTION. SHE FEELS VERY WIPED OUT AFTER HAVING MULTIPLE TESTS DONE TODAY. PLAN IS FOR BRONCH AND RE-BIOPSY TOMORROW. PT HAS RIGHT HAND SALINE LOC, RECEIVING IV CEFEPIMINE & LEVAQUIN. STILL HAS LEFT CHEST TUBE TO LWS. WILL CONT TO MONITOR.
[2017-02-23 00:55] VITALS: BP 83/43
[2017-02-23 04:02] VITALS: BP 90/51
[2017-02-23 05:44] LABS: BASOPHILS 0.1 % (0-2); EOSINOPHILS 0.9 % (0-7); HEMATOCRIT 31.5 % (36.0-48.0); HEMOGLOBIN 10.2 g/dL (12-16); IMMATURE GRANULOCYTES 0.6 % (0-5); LYMPHOCYTES 4.6 % (15-50); MCH 25.8 pg (26.0-34.0); MCHC 32.4 g/dL (31.0-37.0); MCV 79.5 fL (80.0-100.0); MEAN PLATELET VOLUME 9.4 fL (7.4-10.4); MONOCYTES 7.4 % (2-11); NEUTROPHILS 86.4 % (40-80); PLATELET COUNT 438 10x3/uL (130-400); RBC 3.96 10x6/uL (4.00-5.40); RDW 15.8 % (11.5-14.5); WBC 20.5 10x3/uL (4.8-10.8)
[2017-02-23 05:50] LABS: INR 1.11 (0.85-1.17); PROTIME 14.1 SECONDS (11.6-15.0)
[2017-02-23 05:51] LABS: APTT 36.2 SECONDS (22.8-39.4)
[2017-02-23 06:03] LABS: CALCIUM 9.3 mg/dL (8.5-10.1); CARBON DIOXIDE 28.6 mmol/L (21.0-32.0); CHLORIDE - SERUM 90 mmol/L (98-107); GLUCOSE 135 mg/dL (74-106); MAGNESIUM - SERUM 1.9 mg/dL (1.8-2.4); POTASSIUM - SERUM 3.3 mmol/L (3.5-5.1); SODIUM 130 mmol/L (136-145); TROPONIN-I < 0.017 ng/mL (0.000-0.060); eGFR NON AFRICAN AMERICAN 23 mL/min (90-120)
[2017-02-23 06:13] LABS: CALC OSMOLALITY 266 mosm/kg (275-300); CREATININE - SERUM 2.2 mg/dL (0.6-1.3); PHOSPHOROUS 4.6 mg/dL (2.5-4.9); UREA NITROGEN 25 mg/dL (7-18)
--- NOTE | 2017-02-23 07:30 | NUR ---
RECEIVED PT IN BED AAOX4 UP TO BSC VOIDED X1 TOLERATED WELL OXIMIZER ON WITH O2 AT 10 LPM NC NAD NOTED WILL CONTINUE TO MONITOR
[2017-02-23 07:45] VITALS: BP 91/53
--- NOTE | 2017-02-23 11:28 | NUR ---
FSBS 126
[2017-02-23 11:37] VITALS: BP 93/48
[2017-02-23 16:08] VITALS: BP 105/63
--- NOTE | 2017-02-23 18:55 | NUR ---
ROUNDING NOTE: AT CHANGE OF SHIFT, PT IS UP SITTING AT EDGE OF BED. SHE IS WEARING 10L OXYGEN VIA HIGH FLOW NASAL CANNULA OXYMIZER. PT CONTINUES WITH VERY DIMINISHED/ABSENT BREATH SOUNDS ON THE LEFT DUE TO COMPLETE LEFT LUNG COLLAPSE WITH LEFT CHEST TUBE IN PLACE. PT WITH C/O LEFT SIDED CHEST/BREAST PAIN LIKELY DUE TO CHEST TUBE AND PULMONARY ISSUES. CARDIAC ENZYMES NEGATIVE. EKG DONE LAST NIGHT AND REPEATED AGAIN TODAY UNREMARKABLE, NORMAL EKG, NSR. SBP REMAINS SOFT, BUT SLIGHTLY IMPROVED SINCE YESTERDAY. NO MONITOR, SINUS TACHY, HR 90-110. PT GIVEN TYLENOL #3 FOR NONCARDIAC CP WITH IMPROVEMENT. WILL CONT TO MONITOR.
[2017-02-23 20:32] VITALS: BP 95/46
[2017-02-24 00:05] VITALS: BP 86/39
[2017-02-24 05:21] VITALS: BP 109/54
[2017-02-24 05:32] LABS: BASOPHILS 0.1 % (0-2); EOSINOPHILS 1.5 % (0-7); HEMATOCRIT 28.8 % (36.0-48.0); HEMOGLOBIN 9.4 g/dL (12-16); IMMATURE GRANULOCYTES 0.5 % (0-5); LYMPHOCYTES 4.6 % (15-50); MCH 25.5 pg (26.0-34.0); MCHC 32.6 g/dL (31.0-37.0); MCV 78.3 fL (80.0-100.0); MEAN PLATELET VOLUME 8.9 fL (7.4-10.4); MONOCYTES 8.3 % (2-11); PLATELET COUNT 380 10x3/uL (130-400); RBC 3.68 10x6/uL (4.00-5.40); RDW 15.7 % (11.5-14.5)
[2017-02-24 05:43] LABS: WBC 15.1 10x3/uL (4.8-10.8)
[2017-02-24 05:58] LABS: ANION GAP 14.2 mmol/L (8-16); CARBON DIOXIDE 28.6 mmol/L (21.0-32.0)
[2017-02-24 06:10] LABS: POTASSIUM - SERUM 3.8 mmol/L (3.5-5.1)
--- NOTE | 2017-02-24 07:15 | NUR ---
AM ROUNDING DONE WITH PATIENT LAYING ON LEFT SIDE, ON 8L PER OXIMIZER. NO IV ACCESS AT PRESENT TIME. NIGHT NURSE AVTAR IS ATTEMPTING IV. ON HEART MONITIR SHOWING SR, HR 84. BILATERAL SCD'S ARE IN USE. LEFT CHEST TUBE WITH C/D/I DRESSING SEEN WITH LOW WALL SUCTION. ON EP WITH K+ 3.8. WILL MONITOR.
--- NOTE | 2017-02-24 07:41 | NUR ---
PT'S IV BLEW WHILE FLUSHING IT AFTER HER 0600 DOSE OF LASIX. NURSE IMPLANT COORDINATOR YVONNE RESTARTED IV W/ 20G TO RIGHT AC. PT'S SBP WAS 109 PRIOR TO THE LASIX. DISCUSSED WITH CLINIC LICENSED PRACTICAL NURSE ABOUT GIVING LASIX SINCE PT'S BP HAS BEEN RUNNING LOW W/ SBP IN THE 80'S AND 90'S. SINCE BP HAD IMPROVED THIS AM, THE DOSE OF LASIX WAS DILUTED AND PUSHED SLOWLY. NOW PT'S SBP HAS DROPPED IN THE 70'S. DAY SHIFT RN AWARE OF SITUATION.
[2017-02-24 07:45] VITALS: BP 77/44
--- NOTE | 2017-02-24 07:48 | NUR ---
RT AC WITH 20 G X 1 STICK PER JOEL BYRNE RN .
--- NOTE | 2017-02-24 11:35 | NUR ---
WHILE IN ANOTHER ROOM I COULD HEAR THE PATIENT COUGHING HARD. CHECKED ON THIS PATIENT AND SHE STATES THAT SHE HAS COUGHED UP SOME LIGHT WHITE WITH RED STREAKS AND A LITTLE BROWN TO IT. THE UPPER LEFT WHEEZING I HAD HEARD EARILER IN ASSESSMENT IS NOW GONE AT THIS TIME. WILL CONTINUE TO MONITOR.
[2017-02-24 11:50] VITALS: BP 91/50
--- NOTE | 2017-02-24 14:42 | NUR ---
[facility] BE [facility] TO [facility].
--- NOTE | 2017-02-24 15:07 | NUR ---
RECEIVED INFORMATION FROM DR VALDES THAT THE PATIENT WAS GOING TO BE TRANSFERING TO [facility] WITH DX: OBSTRUCTIVE LESION, TO INTERVENTIONAL LASER SOFTWARE COMPUTER SPECIALIST DR DAVID HOSKINS. CALL WAS PLACED TO ADRIANNA HORTONLETTERER. HE OBTAINED ADMINISTRATIVE APPROVAL FROM ADRIANNA ARANA. CALL WAS PLACED TO DR HOSKINS'S NURSE ELIZABETH GOOD AT [phone]. SHE REQUESTED RECORDS BE FAXED TO [phone]. RECORDS WERE SENT. SHE STATED THAT SOMEONE SHOULD CALL ME WITHIN 30-45 MINUTES FROM BED CONTROL. SHE ALSO STATED THAT SHE WOULD HAVE PATIENT SET UP FOR [facility] WITH INTERVENTION FOR TOMORROW. SHE IS UNSURE IF SHE WILL BE ACCEPTED TONIGHT OR TOMORROW EARLY AM. I WILL BE NOTIFIED OF THIS BY BED CONTROL. NEISHA BROUSSARD CNP FOR DR SAUCEDO HAS BEEN GIVEN THIS UPDATE. WILL UPDATE FURTHER AFTER TALKING WITH BED CONTROL.
--- NOTE | 2017-02-24 15:15 | NUR ---
Patient Name: EMILY ORTEGA Admission Status: ER Accout number: [id number] Admission Date: 02-20-2017 : 1945 Admission Diagnosis:OTHER PULMONARY COLLAPSE Attending: BONIFACIO CURTIS Current LOS: 4 Anticipated DC Date: 02-24-2017 Planned Disposition: Acute Care Hospital Primary Insurance: [facility] PLANNED EXTERNAL PROVIDER: [facility] Discharge Planning Comments: * Is the patient Alert and Oriented? Yes 0 * How many steps to enter\exit or inside your home? NONE 0 * PCP DR. SCHERER 0 * Pharmacy [facility] 0 * Preadmission Environment Home Alone 0 * ADLs Independent 0 * Equipment Nebulizer Oxygen 0 * Other Equipment HOME AND PORTABLE OXYGEN [facility]ALTHCARE MEDICAL - MEDICAL EQUENT PROVIDER 0 * List name and contact numbers for known caregivers / representatives who currently or will assist patient after discharge: JULIO HAN, DAUGHTER, 0 * Community resources currently utilized None 0 * Please name any agencies selected above. NONE 0 * Additional services required to return to the preadmission environment? Yes * Can the patient safely return to the preadmission environment? Yes 0 * Has this patient been hospitalized within the prior 30 days at any hospital? No [address] VALDES WHO REPORTS PT NEEDS TRANSFER TO [facility] ([facility], ACCEPTED BY DR. DAVID HOSKINS, WILL NEED INTERVENTAL PULMONOLOGY AND EQUIPMENT FOR SURGERY IS NOT AVAILABLE AT [place]. ADRIANNA STONER NOTIFIED. CM SPOKE TO PT IN ROOM TO DISCUSS DISCHARGE PLANNING AND NEEDS. PT REPORTS LIVING AT HOME INDEPENDENTLY AND ALONE. PT HAS ELEVATED TOILET SEAT, GLUCOMETER, HOME AND PORTABLE OXYGEN, ROLLING WALKER, WHOWER CHAIR AND A WALKER FROM [employer]. PT HAS NO OUTSIDE SERVICES ASSISTING IN THE HOME. CM DISCUSSED HOSPITAL TRANSFER. PT REPORTS DISCUSSING WITH DR. VALDES AND IS IN AGREEMENT WITH TRANSFER TO [facility] FOR THE NEEDED SURGERY. PT WILL NOTIFY HER DAUGHTER OF TRANSFER. IMPORTANT MESSAGE FROM MEDICARE PROVIDED AND EXPLAINED. CM SPOKE TO ADRIANNA STONER WHO REPORTS WAITING ON A CALL FROM [facility] BED CONTROL FOR BED AVAILABILITY. Environmental Planning Engineer: Kaveh Ratliff
[2017-02-24 15:40] VITALS: BP 99/62
[2017-02-24] MEDS ORDERED: MAXIPIME 2 GM/D52 G1 IV (16:12)
[2017-02-24] MEDS ORDERED: ALBUTEROL2.5 MG/3 M UPD (16:12)
[2017-02-24] MEDS ORDERED: IPRAT-ALBUT 0.5-3 ML INH (16:13)
[2017-02-24] MEDS ORDERED: BROVANA15 MCG/2 M INH (16:13)
[2017-02-24] MEDS ORDERED: MUCOMYST 20200 MG/M2 PO (16:14)
[2017-02-24] MEDS ORDERED: PULMICORT0.5 MG/21 UPD (16:14)
--- NOTE | 2017-02-24 17:14 | NUR ---
CALLED PURCHASING AGENT [employer] TO COME SIGN THE [employer] TRANSFER BACK AGREEMENT SO I CAN FAX IT BACK FOR A ROOM NUMBER.
--- NOTE | 2017-02-24 17:22 | NUR ---
FAXED [employer] TRANSFER AGREEMENT BACK.
--- NOTE | 2017-02-24 17:37 | NUR ---
URINE SENT TO LAB ORDERED.
--- NOTE | 2017-02-24 19:00 | NUR ---
REC REPORT, ASSUMED CARE OF PATIENT. SITTING ON BEDSIDE. ORIENTED X 4. ON 02 AT 8L/OXIMIZER. IV IN R AC INTACT WITH BICARB INFUSING AT 125ML/HR. LEFT CHEST TUBE DRSG C/DI SET TO LOW INTERMITTANT SUCTION. TELEMETRY LEADS IN PLACE, SHOWS SR ON MONITOR. DENIES PAIN OR ANY NEEDS.
[2017-02-24 20:00] VITALS: BP 96/57
[2017-02-24 20:11] LABS: CREATININE - URINE 166.3 mg/dL (30-125)
--- NOTE | 2017-02-24 23:32 | NUR ---
Spoke with [facility] bed control for update on getting room for patient who is to be admitted there by 0600 02/25/17. Was told that they can't give room number out at this time because patient can't arrive before 0600 due to orders. Explained that nurse got report from [facility] LOADER that they wanted pt npo after midnight with all heparin stopped for procedure tomorrow. Was informed that they will call us at [phone] with room number. Explained to her that the time patient will arrive after that, will depend on ambulance availability. Bed control stated she understood.
[2017-02-25] VITALS: BP 102/54
--- NOTE | 2017-02-25 00:15 | NUR ---
ASSISTED TO BSC. ACKNOWLEDGES THAT SHE IS NOW NPO.
--- NOTE | 2017-02-25 00:30 | NUR ---
MADE CHART COPIES FOR [facility].
--- NOTE | 2017-02-25 04:58 | NUR ---
[facility] CALLED WITH BED #[id number] ON UNIT 7B. GAVE REPORT TO STEPHANIE VALLEJO RN. [facility] PICKED UP PATIENT TO TRANSPORT.
--- NOTE | 2017-02-25 05:03 | NUR ---
CALLED PATIENT'S DAUGHTER SALEEM PER HER REQUEST TO GENERATOR OPERATOR STRAIGHT BEVEL GEAR PERSONAL ITEMS. PATIENT TOOK HER CLOTHES, SHOES, PHONE, PURSE AND PERSONAL OXYGEN EQUIPMENT.
[2017-02-28 13:12] LABS: OSMOLALITY - URINE 403 (())
== END 2017-02-25 05:06 | disposition short-term general hospital, planned readmission (82) | DRG 163 ==
LOC: D.ER 19:08 → D.M2 21:08
PROVIDERS: Emergency Medicine; Family Medicine; Internal Medicine Pulmonary Disease; Surgery; ADMIT Family Medicine
PROC: 0BD78ZX Extraction of Left Main Bronchus, Via Natural or Artificial Opening Endoscopic, Diagnostic (ICD-10-PCS; principal; 2017-02-21 16:15)
PROC: 0B9L00Z Drainage of Left Lung with Drainage Device, Open Approach (ICD-10-PCS; 2017-02-21 16:15)
DX: J98.19 Other pulmonary collapse (principal); J18.9 Pneumonia, unspecified organism; J44.0 Chronic obstructive pulmonary disease with (acute) lower respiratory infection; E87.1 Hypo-osmolality and hyponatremia; J96.11 Chronic respiratory failure with hypoxia; J98.11 Atelectasis; Z99.81 Dependence on supplemental oxygen; R91.1 Solitary pulmonary nodule; K21.9 Gastro-esophageal reflux disease without esophagitis; M19.90 Unspecified osteoarthritis, unspecified site; G25.81 Restless legs syndrome; I11.0 Hypertensive heart disease with heart failure; I50.9 Heart failure, unspecified; E11.65 Type 2 diabetes mellitus with hyperglycemia; E66.01 Morbid (severe) obesity due to excess calories; Z68.38 Body mass index [BMI] 38.0-38.9, adult; I25.10 Atherosclerotic heart disease of native coronary artery without angina pectoris; E88.01 Alpha-1-antitrypsin deficiency; M79.7 Fibromyalgia; E83.42 Hypomagnesemia; D50.9 Iron deficiency anemia, unspecified; J30.9 Allergic rhinitis, unspecified; I95.9 Hypotension, unspecified; E87.6 Hypokalemia; Z87.891 Personal history of nicotine dependence

== ENCOUNTER 2017-02-25 18:15 | Inpatient (IN) | payer MEDICARE, MEDICAID ==
[~2017-02-25 18:15] MED LIST changes: +ALBUTEROL2.5 MG/3 M UPD; +BROVANA15 MCG/2 M INH; +IPRAT-ALBUT 0.5-3 ML INH; +MAXIPIME 2 GM/D52 G1 IV; +MUCOMYST 20200 MG/M2 PO; +PULMICORT0.5 MG/21 UPD; +REGLAN5 MG PO; +TYLENOL W/CODEI1 TAB PO
[2017-02-25 20:00] VITALS: BP 141/64
[2017-02-25 20:59] VITALS: BP 141/64; BMI 43.0
[2017-02-26] VITALS (7 sets, daily range): BP systolic 112–133; BP diastolic 34–89; BMI 42.9
--- NOTE | 2017-02-26 06:24 | NUR ---
PATIENT SLEPT MOST OF THE NIGHT WITH NO COMPLAINTS. CHEST TUBE TO THE LEFT SIDE SECURED WITH FOAM TAPE. SUCTION SET TO 20mmHg. 6LPM OXIMIZER HAS BEEN WORN ALL NIGHT. PATIENT IS STABLE WHILE AMBULATING BUT DOES ASK FOR HELP BECAUSE OF THE LINES ATTACHED TO HER.
--- NOTE | 2017-02-26 07:18 | NUR ---
AWAKE AND ALERT AND UP IN CHAIR AT THIS TIME. CHEST TUBE TO 20CM OF SUCTION. PT REPORTS THAT COLLECTION CANISTER HAS BEEN KNOCKED OVER MULTIPLE TIMES. NOTIFIED UPHOLSTERY CUTTER THAT NEW COLLECTION CHAMBER WAS NEEDED FOR ACCURATE MEASUREMENT OF OUTPUT FROM CHEST TUBE. DENIES NEEDS AT THIS TIME. OXYGEN ON 6L VIA OXYMIZER. WILL CONTINUE WITH PLAN OF CARE.
[2017-02-26 12:02] LABS: BASOPHILS 0.2 % (0-2); EOSINOPHILS 3.7 % (0-7); HEMOGLOBIN 9.4 g/dL (12-16); IMMATURE GRANULOCYTES 1.3 % (0-5); LYMPHOCYTES 8.9 % (15-50); MCH 25.2 pg (26.0-34.0); MCHC 31.3 g/dL (31.0-37.0); MCV 80.4 fL (80.0-100.0); MONOCYTES 9.6 % (2-11); NEUTROPHILS 76.3 % (40-80); RBC 3.73 10x6/uL (4.00-5.40); RDW 15.8 % (11.5-14.5); WBC 11.1 10x3/uL (4.8-10.8)
[2017-02-26 12:04] LABS: PLATELET COUNT 478 10x3/uL (130-400)
[2017-02-26 12:17] LABS: ALBUMIN 2.4 g/dL (3.4-5.0); ANION GAP 11.5 mmol/L (8-16); BILIRUBIN - TOTAL 0.29 mg/dL (0.2-1.3); CALCIUM 9.4 mg/dL (8.5-10.1); CARBON DIOXIDE 31.3 mmol/L (21.0-32.0); CREATININE - SERUM 1.1 mg/dL (0.6-1.3); POTASSIUM - SERUM 3.8 mmol/L (3.5-5.1); PROTEIN - SERUM 7.2 g/dL (6.4-8.2)
--- NOTE | 2017-02-26 12:25 | NUR ---
CHEST TUBE COLLECTION SYSTEM CHANGED AND PLACED TO WATER SEAL AT THIS TIME PER DR VALDES'S ORDER. SECURED COLLECTION SET TO IV POLE SO THAT IT COULD NOT BE KNOCKED OVER EASILY.
--- NOTE | 2017-02-26 15:00 | NUR ---
DRESSING TO CHEST TUBE CHANGED AT THIS TIME.
--- NOTE | 2017-02-27 01:30 | NUR ---
PATIENT RESTING IN BED WITH EYES CLOSED AND NO VISIBLE SIGNS OF DISTRESS. BED IN LOWEST POSITION AND CALL LIGHT WITHIN REACH.
[2017-02-27 03:57] VITALS: BP 120/63
[2017-02-27 06:07] LABS: % SATURATION 11 % (15-55); IRON 31 ug/dl (35-150); TOTAL IRON BIND CAPACITY 263 ug/dl (260-445); UNSAT IRON BIND CAPACITY 232 ug/dl (150-375)
[2017-02-27 06:24] LABS: ALBUMIN 2.5 g/dL (3.4-5.0); ANION GAP 11.7 mmol/L (8-16); BILIRUBIN - TOTAL 0.27 mg/dL (0.2-1.3); CALCIUM 9.4 mg/dL (8.5-10.1); CARBON DIOXIDE 29.7 mmol/L (21.0-32.0); CREATININE - SERUM 0.9 mg/dL (0.6-1.3); PROTEIN - SERUM 7.1 g/dL (6.4-8.2); THYROID STIMULATING HORMONE 1.33 uIU/mL (0.36-3.74)
[2017-02-27 06:25] LABS: POTASSIUM - SERUM 4.4 mmol/L (3.5-5.1)
[2017-02-27 06:26] LABS: BASOPHILS 0.2 % (0-2); EOSINOPHILS 3.6 % (0-7); HEMOGLOBIN 10.1 g/dL (12-16); IMMATURE GRANULOCYTES 2.1 % (0-5); LYMPHOCYTES 9.4 % (15-50); MCH 25.4 pg (26.0-34.0); MCHC 31.6 g/dL (31.0-37.0); MCV 80.6 fL (80.0-100.0); MEAN PLATELET VOLUME 9.2 fL (7.4-10.4); MONOCYTES 13.7 % (2-11); PLATELET COUNT 406 10x3/uL (130-400); RBC 3.97 10x6/uL (4.00-5.40); WBC 11.8 10x3/uL (4.8-10.8)
--- NOTE | 2017-02-27 08:00 | NUR ---
SHIFT ASSESSMENT COMPLETE. PATIENT ALERT/ORIENTED X 3. SITTING UP IN CHAIR EATING BREAKFAST. NO COMPLAINTS AT THIS TIME. CALL LIGHT IN REACH. WILL CONTINUE TO MONITOR.
[2017-02-27 08:38] VITALS: BP 157/66
[2017-02-27 12:08] VITALS: BP 115/50
[2017-02-27 16:16] VITALS: BP 118/59
[2017-02-27 19:55] VITALS: BP 127/50
[2017-02-28 04:01] VITALS: BP 152/68
[2017-02-28 05:33] LABS: BASOPHILS 0.1 % (0-2); EOSINOPHILS 3.4 % (0-7); HEMATOCRIT 29.7 % (36.0-48.0); HEMOGLOBIN 9.1 g/dL (12-16); IMMATURE GRANULOCYTES 2.7 % (0-5); LYMPHOCYTES 8.1 % (15-50); MCH 25.2 pg (26.0-34.0); MCHC 30.6 g/dL (31.0-37.0); MCV 82.3 fL (80.0-100.0); MEAN PLATELET VOLUME 8.6 fL (7.4-10.4); MONOCYTES 10.1 % (2-11); NEUTROPHILS 75.6 % (40-80); PLATELET COUNT 450 10x3/uL (130-400); RBC 3.61 10x6/uL (4.00-5.40); RDW 16.1 % (11.5-14.5)
[2017-02-28 05:50] LABS: ALBUMIN 2.5 g/dL (3.4-5.0); BILIRUBIN - TOTAL 0.2 mg/dL (0.2-1.3); CALCIUM 9.4 mg/dL (8.5-10.1); CARBON DIOXIDE 29.6 mmol/L (21.0-32.0); CREATININE - SERUM 0.8 mg/dL (0.6-1.3); POTASSIUM - SERUM 4.6 mmol/L (3.5-5.1); PROTEIN - SERUM 6.8 g/dL (6.4-8.2)
--- NOTE | 2017-02-28 07:35 | NUR ---
PT AOX4 RESP EVEN AND NONLABORED PT DENIES NEEDS AT THIS TIME IV TO LEFT HAND PATENT AND INTACT AT THIS TIME SRX2 BED AT LOWEST SETTING CALL LIGHT WITHIN REACH WILL CONTINUE TO MONITOR
--- NOTE | 2017-02-28 07:48 | NUR ---
PT RESTING QUIETLY, EYES CLOSED. RESP EVEN, UNLABORED. NO DISTRESS NOTED. CONTINUE OBSTETRICS NURSE'S PLAN OF CARE. =
[2017-02-28 08:15] VITALS: BP 135/69
[2017-02-28 12:09] VITALS: BP 135/65
--- NOTE | 2017-02-28 16:13 | NUR ---
Patient Name: EMILY ORTEGA Admission Status: Elective Accout number: [id number] Admission Date: 02-25-2017 : 1945 Admission Diagnosis: Attending: AZRA SCHERER Current LOS: 3 Anticipated DC Date: 03-03-2017 Planned Disposition: Home with Home Health Primary Insurance: [facility] Discharge Planning Comments: CM MET WITH PATIENT REGARDING D/C NEEDS AND PLANS. PATIENT STATED SHE LIVES ALONE AND HAS NO STEPS OR STAIRS AT HER HOME. PATIENT STATED SOMEONE WILL DRIVE HER HOME AT DISCHARGE. PATIENT STATED SHE IS INDEPENDENT WITH HER CARE AND HAS A WALKER, CANE, NEBULIZER, OXYGEN, PORTABLE O2, AND BS COMMODE AT HOME. PATIENTS PCP IS DR. SCHERER AND PHARMACY IS [facility]. PATIENT HAS SENIOR HELPERS THAT COME TO HER HOME 2 DAYS A WEEK FOR 3HRS A DAY. PATIENT HAS SIGNED THE KEVIN FORM FOR [facility] WHEN DISCHARGED. PCP DR. [facility]- [phone] SALEEM PENALOZA (DAUGHTER) [phone] Senior Enterprise Architect: Shweta Xavier Is the patient Alert and Oriented? Yes 0 * How many steps to enter\exit or inside your home? 0 0 * PCP DR. SCHERER 0 * Pharmacy [facility] 0 * Preadmission Environment Home Alone 0 * ADLs Independent 0 * Equipment Bedside Commode Cane Nebulizer Oxygen Walker 0 * Other Equipment PORTABLE O2 0 * List name and contact numbers for known caregivers / representatives who currently or will assist patient after discharge: SALEEM PENALOZA [phone] (DAUGHTER) 0 * Community resources currently utilized Other 0 * Please name any agencies selected above. [facility] [employer] 2 DAYS WEEK FOR HRS 0 * Additional services required to return to the preadmission environment? Yes 0 * Can the patient safely return to the preadmission environment? Yes 0 * Has this patient been hospitalized within the prior 30 days at any hospital? No 0 Grand Total: 0
[2017-02-28 16:56] VITALS: BP 126/66
[2017-02-28 20:00] VITALS: BP 130/65
--- NOTE | 2017-02-28 22:42 | NUR ---
REC'D SITTING UP IN BED. ALERT AND ORIENTED X4. DENIED PAIN AT THIS TIME. DENIED NEEDS AT THIS TIME. INSTRUCTED TO CALL IF NEEDED ANYTING VERBALIZED UNDERSTANDING. NO DISTRESS NOTED. BED LOW, LOCKED, CALL LIGHT IN REACH.
[2017-03-01] VITALS: BP 144/72
--- NOTE | 2017-03-01 01:39 | NUR ---
EYES CLOSED RESPIRATIONS WITH EASE AND UNLABORED. SR UP X2 CALL LIGHT WITHIN REACH.
[2017-03-01 04:00] VITALS: BP 134/70
[2017-03-01 05:20] LABS: BASOPHILS 0.2 % (0-2); EOSINOPHILS 3.6 % (0-7); HEMATOCRIT 29.3 % (36.0-48.0); HEMOGLOBIN 8.9 g/dL (12-16); IMMATURE GRANULOCYTES 5.5 % (0-5); MCH 25.4 pg (26.0-34.0); MCHC 30.4 g/dL (31.0-37.0); MCV 83.7 fL (80.0-100.0); MEAN PLATELET VOLUME 8.6 fL (7.4-10.4); MONOCYTES 10.5 % (2-11); NEUTROPHILS 70.2 % (40-80); PLATELET COUNT 401 10x3/uL (130-400); RDW 16.4 % (11.5-14.5); WBC 8.8 10x3/uL (4.8-10.8)
[2017-03-01 06:00] LABS: ALBUMIN 2.4 g/dL (3.4-5.0); ANION GAP 9.8 mmol/L (8-16); BILIRUBIN - TOTAL 0.19 mg/dL (0.2-1.3); CALCIUM 9.3 mg/dL (8.5-10.1); CARBON DIOXIDE 30.7 mmol/L (21.0-32.0); CREATININE - SERUM 0.8 mg/dL (0.6-1.3); POTASSIUM - SERUM 4.5 mmol/L (3.5-5.1); PROTEIN - SERUM 6.5 g/dL (6.4-8.2)
--- NOTE | 2017-03-01 07:30 | NUR ---
ASSESSMENT COMPLETE. SL TO L HAND. L CHEST TUBE TO WATERSEAL. SCD'S IN USE TO BILAT LEGS. O2 6L PER OXIMIZER IN USE. DENIES ANY NEEDS AT PRESENT.
[2017-03-01 08:20] LABS: FOLATE (FOLIC ACID) - SERUM 8.1 ng/mL (>3.0)
[2017-03-01 09:06] VITALS: BP 142/78
--- NOTE | 2017-03-01 11:30 | NUR ---
SITTING UP IN CHAIR VISITING WITH FRIEND. DENIES ANY NEEDS AT THIS TIME.
[2017-03-01 12:27] VITALS: BP 131/65
--- NOTE | 2017-03-01 15:00 | NUR ---
NUTRITION F/U CHART REVIEWED. PT TOLERATING ADA DIET. 75 TO 100% INTAKE RECENT MEALS. WILL CONTINUE TO PROVIDE CURRENT DIET, MONITOR PO INTAKE. RD FOLLOWING
--- NOTE | 2017-03-01 15:02 | NUR ---
TYLENOL #3 GIVEN FOR COMPLAINT OF PAIN. SITTING UP IN CHAIR. DR SALDIVAR BY TO SEE PATIENT.
[2017-03-01 16:14] VITALS: BP 133/89
--- NOTE | 2017-03-01 19:45 | NUR ---
PATIENT IS AWAKE, ALERT AND ORIENTED X'S 4. RESPIRATIONS ARE EVEN AND UNLABORED ON 6.5L/MIN OXYMIZER. CHEST TUBE APPEARS INTACT. PATIENT AMBULATED TO THE BATHROOM AND BACK TO BED INDEPENDENTLY. NO SIGNS OF DISTRESS NOTED. GAIT STEADY. PATIENT DENIES NEEDS.
[2017-03-01 20:00] VITALS: BP 120/48
--- NOTE | 2017-03-01 21:10 | NUR ---
ADMINISTERED SCHEDULED MEDICATION. ADMINISTERED HUMALOG PER SLIDING SCALE. GAVE PATIENT CAHI CRACKERS AND PEANUT BUTTER FOR A HS SNACK. PATIENT DENIES NEEDS.
[2017-03-02 05:08] LABS: BASOPHILS 0.1 % (0-2); EOSINOPHILS 3.6 % (0-7); HEMATOCRIT 29.5 % (36.0-48.0); IMMATURE GRANULOCYTES 3.8 % (0-5); LYMPHOCYTES 10.1 % (15-50); MCH 25.6 pg (26.0-34.0); MCHC 30.5 g/dL (31.0-37.0); MCV 83.8 fL (80.0-100.0); MEAN PLATELET VOLUME 8.8 fL (7.4-10.4); MONOCYTES 8.5 % (2-11); NEUTROPHILS 73.9 % (40-80); RBC 3.52 10x6/uL (4.00-5.40); RDW 16.4 % (11.5-14.5); WBC 9.2 10x3/uL (4.8-10.8)
[2017-03-02 05:09] LABS: PLATELET COUNT 490 10x3/uL (130-400)
[2017-03-02 05:40] LABS: ALBUMIN 2.4 g/dL (3.4-5.0); ALKALINE PHOSPHATASE 77 U/L (46-116); ALT (SGPT) 24 U/L (10-68); BILIRUBIN - TOTAL 0.11 mg/dL (0.2-1.3); CALC OSMOLALITY 278 mosm/kg (275-300); CARBON DIOXIDE 32.7 mmol/L (21.0-32.0); CHLORIDE - SERUM 100 mmol/L (98-107); CREATININE - SERUM 0.7 mg/dL (0.6-1.3); GLUCOSE 133 mg/dL (74-106); PROTEIN - SERUM 5.9 g/dL (6.4-8.2); SODIUM 138 mmol/L (136-145); UREA NITROGEN 14 mg/dL (7-18); eGFR NON AFRICAN AMERICAN 87 mL/min (90-120)
[2017-03-02 05:41] LABS: POTASSIUM - SERUM 5.3 mmol/L (3.5-5.1)
--- NOTE | 2017-03-02 07:30 | NUR ---
PT AOX4 RESP EVEN AND NONLABORED PT DENIES NEEDS AT THIS TIME IV TO RIGHT HAND PATENT AND INTACT AT THIS TIME SRX2 BED AT LOWEST SETTING CALL LIGHT WITHIN REACH WILL CONTINUE TO MONITOR
[2017-03-02 08:43] VITALS: BP 143/70
[2017-03-02 15:51] VITALS: BP 118/60
--- NOTE | 2017-03-02 17:09 | OP ---
PATIENT NAME: EMILY ORTEGA MEDICAL RECORD: [id number] :44 LOCATION:[id number] ADMISSION DATE:02/25/17 SURGEON: SANDRA BELL MD DATE OF OPERATION: 03/02/2017 PREOPERATIVE DIAGNOSES: 1. Squamous cell carcinoma of the lung. 2. Collapse left lung. POSTOPERATIVE DIAGNOSES: 1. Squamous cell carcinoma of the lung. 2. Collapse left lung. PROCEDURES PERFORMED: 1. Bronchoscopy with left mainstem bronchial stent placement. 2. Left subclavian PowerPort placement. 3. Left chest tube removal. ANESTHESIA: General. COMPLICATIONS: None. SPECIMENS: None. Case was clean. ESTIMATED BLOOD LOSS: 30 cc. ANESTHESIA: General. OPERATIVE COURSE: After consent was obtained, the patient was taken to the operating room and placed in supine position on the operating table. Next, general anesthesia was given via endotracheal intubation. Thereafter, a timeout was performed confirming the correct patient and procedure. The bronchoscope was passed through the endotracheal tube. Once the trachea was identified, the left mainstem was identified. Bronchoscope was advanced into the left main stem bronchus to the area of occlusion. The C-arm was used at this time for the remaining portion of the procedure. The proximal portion lesion was marked with fluoroscopy. The bronchus was injected with normal saline. Once injected, the guidewire was placed. Under fluoroscopic guidance, in the left lower lobe of the lung, the lesion was marked. A [employer] 18 x 60 mm bronchial stent was passed over the guidewire under fluoroscopic guidance. The stent was deployed. The deployment device was removed as well as the guidewire. The bronchoscope was reinserted. We put the bronchoscope down her nose. The stent was deployed. There was significant tension on the stent. The left mainstem airway was partially opened, but enough to pass the stent. The left middle and lower lobe opening, there was significant tumor beyond the length of the stent. The secondary and tertiary bronchus were copiously irrigated and suctioned. At this time, the bronchoscope was removed. PEEP was then added to the ventilator circuit. At this time, the left chest wall was prepped and draped in typical sterile fashion. Local anesthetic was injected. The left subclavian vein was cannulated on the first pass. The wire was passed through the needle under fluoroscopic guidance and advanced to the atriocaval junction. The needle was removed. The catheter and dilator were then passed over the wire in a standard Seldinger fashion under fluoroscopic guidance. Skin incisions made with a 15 OPERATIVE REPORT [id number] EMILY ORTEGA scalpel. Dissection continued to the pectoralis fascia using electrocautery. The tunneling device was used to tunnel the catheter from the skin incision site to the needle stick site. Catheter was cut to length. The catheter was advanced through the breakaway sheath under fluoroscopic guidance to the atriocaval junction. The breakaway sheath was removed. The port was secured to the pectoralis fascia using interrupted 2-0 Prolene suture and the port was accessed. Blood was aspirated and it was then flushed with 30 mL of normal saline with 5000 units of heparin. The wound was copiously irrigated and suctioned. It was closed in multiple layers. Deep fascia was closed with 3-0 Vicryl suture, superficial fascia with 2-0 Vicryl suture. Skin was closed with 4-0 Monocryl, Mastisol and Steri-Strips. The port was then accessed, blood was aspirated. The port was then again flushed with 10 cc of normal saline. Next, the left chest tube was removed with a pressure dressing in place consisting of Xeroform gauze and sterile 4 x 4s, secured in place with silk tape. At the end of the procedure, all needle and instrument counts were correct. The patient was extubated and transferred to the PACU in stable condition. TRANSINT:[id number] Voice Confirmation ID: [id number] DOCUMENT ID: [id number] SANDRA BELL MD at 1709 CC: [id number] DICTATION DATE: 03/02/17 1520 MOBILE HOME LOT UTILITY WORKER: 03/02/17 1657 ADM IN [facility] [address] [place] [address]
[2017-03-02 17:19] LABS: ALBUMIN 2.5 g/dL (3.4-5.0); ALKALINE PHOSPHATASE 76 U/L (46-116); ALT (SGPT) 21 U/L (10-68); BILIRUBIN - TOTAL 0.12 mg/dL (0.2-1.3); CALC OSMOLALITY 276 mosm/kg (275-300); CALCIUM 9.1 mg/dL (8.5-10.1); CARBON DIOXIDE 32.8 mmol/L (21.0-32.0); CHLORIDE - SERUM 100 mmol/L (98-107); CREATININE - SERUM 0.7 mg/dL (0.6-1.3); GLUCOSE 134 mg/dL (74-106); POTASSIUM - SERUM 4.6 mmol/L (3.5-5.1); PROTEIN - SERUM 6.6 g/dL (6.4-8.2); SODIUM 138 mmol/L (136-145); UREA NITROGEN 11 mg/dL (7-18); eGFR NON AFRICAN AMERICAN 87 mL/min (90-120)
[2017-03-02 20:00] VITALS: BP 140/55
[2017-03-03] VITALS: BP 145/62
[2017-03-03 04:00] VITALS: BP 144/66
[2017-03-03 06:32] LABS: BASOPHILS 0.1 % (0-2); EOSINOPHILS 2.1 % (0-7); HEMATOCRIT 29.6 % (36.0-48.0); HEMOGLOBIN 8.9 g/dL (12-16); IMMATURE GRANULOCYTES 2.2 % (0-5); LYMPHOCYTES 8.3 % (15-50); MCH 25.2 pg (26.0-34.0); MCHC 30.1 g/dL (31.0-37.0); MCV 83.9 fL (80.0-100.0); MEAN PLATELET VOLUME 9.1 fL (7.4-10.4); MONOCYTES 7.7 % (2-11); NEUTROPHILS 79.6 % (40-80); PLATELET COUNT 470 10x3/uL (130-400); RBC 3.53 10x6/uL (4.00-5.40); RDW 16.8 % (11.5-14.5); WBC 10.3 10x3/uL (4.8-10.8)
[2017-03-03 07:02] LABS: ALBUMIN 2.6 g/dL (3.4-5.0); ALKALINE PHOSPHATASE 74 U/L (46-116); ALT (SGPT) 21 U/L (10-68); CALC OSMOLALITY 270 mosm/kg (275-300); CALCIUM 9.6 mg/dL (8.5-10.1); CARBON DIOXIDE 31.8 mmol/L (21.0-32.0); CHLORIDE - SERUM 98 mmol/L (98-107); CREATININE - SERUM 0.6 mg/dL (0.6-1.3); GLUCOSE 128 mg/dL (74-106); POTASSIUM - SERUM 4.6 mmol/L (3.5-5.1); PROTEIN - SERUM 6.7 g/dL (6.4-8.2); SODIUM 135 mmol/L (136-145); UREA NITROGEN 11 mg/dL (7-18); eGFR NON AFRICAN AMERICAN > 90 mL/min (90-120)
--- NOTE | 2017-03-03 08:00 | NUR ---
REPORT RECIEVED ASSUMED CARE. PATIENT IN BED WITH IV INTACT. NO COMPLAINTS AT THIS TIME. ASSESSMENT COMPLETE, VS STABLE. PATIENT ABDOMEN INCISIONS CDI. BOWELS WNL. FAMILY AT BEDSIDE. CALL LIGHT WITHIN REACH.
--- NOTE | 2017-03-03 08:00 | NUR ---
REPORT RECIEVED ASSUMED CARE. PATIENT IN BED WITH IV INTACT. NO COMPLAINTS AT THIS TIME. CALL LIGHT WITHIN REACH.
[2017-03-03 08:03] VITALS: BP 149/68
--- NOTE | 2017-03-03 09:00 | NUR ---
PATIENT SITTING UP IN CHAIR AT THIS TIME WITH NO PROBLEMS. ASSESSMENT COMPLETE, VS STABLE. IV INTACT. NO COMPLAINTS OR SIGNS OF DISTRESS. OXYMIZER ON 6 L AT THIS TIME. CALL LIGHT WITHIN REACH.
--- NOTE | 2017-03-03 10:50 | NUR ---
PATIENT SITTING UP IN CHAIR AT THIS TIME. IV INTACT. NO COMPLAINTS OR SIGNS OF DISTRESS. CALL LIGHT WITHIN REACH.
--- NOTE | 2017-03-03 11:00 | NUR ---
PATIENT IN BED WITH NO COMPLAINTS. EYES CLOSED RESTING QUIETLY. FAMILY AT BEDSIDE. CALL LIGHT WITHIN REACH.
[2017-03-03 12:07] VITALS: BP 140/68
--- NOTE | 2017-03-03 13:21 | NUR ---
CM REASSESSMENT NOTE: PATIENT IS DISCHARGING HOME TODAY AND FAMILY IS DRIVING HER. D/C IMM SERVED. KEVIN FORM SIGNED WITH [employer] [facility].
[2017-03-03] MEDS ORDERED: NYSTATIN ORAL SU5 ML PO (13:29)
[2017-03-03] MEDS ORDERED: IPRAT-ALBUT 0.5-3 ML UPD (13:30)
[2017-03-03] MEDS ORDERED: MUCINEX DM ER1 EAC1 PO (13:31)
[2017-03-03] MEDS ORDERED: SINGULAIR10 MG PO (13:31)
[2017-03-03] MEDS ORDERED: BENZONATATE200 MG PO (13:34)
[2017-03-03] MEDS ORDERED: PULMICORT0.5 MG/21 UPD (13:36)
[2017-03-03] MEDS ORDERED: TYLENOL W/CODEI1 TAB PO ×2 (13:36→14:54)
--- NOTE | 2017-03-03 14:13 | NUR ---
PATIENT SITTING UP ON SIDE OF BED AT THIS TIME WITH FAMILY AT BEDSIDE. AWAITING DC. RT WEANING O2. PATIENT ON 3L NC AT HOME. CALL LIGHT WITHIN REACH.
[2017-03-03] MEDS ORDERED: PULMICORT0.5 MG/21 INH (14:54)
--- NOTE | 2017-03-03 16:00 | NUR ---
PATIENT RECIEVED DC INSTRUCTIONS AND PRESCRIPTIONS. NO QUESTIONS AT THIS TIME. PORT ACCESSED REMOVED AND DRESSING PLACED ON PATIENT. O2 WEANED DOWN TO 3 LITERS NC BY RT. AWAITING WC FOR DC. CALL LIGHT WITHINR EACH. FAMILY AT BEDSIDE.
== END 2017-03-03 16:42 | disposition home health service (06) | DRG 180 ==
LOC: D.MS 18:15
PROVIDERS: Family Medicine; Internal Medicine; Surgery; ADMIT Family Medicine
PROC: B5181ZA Fluoroscopy of Superior Vena Cava using Low Osmolar Contrast, Guidance (ICD-10-PCS; 2017-03-02)
PROC: 0B7 Respiratory System, Dilation (ICD-10-PCS; principal; 2017-03-02 09:45)
PROC: 0JH63XZ Insertion of Tunneled Vascular Access Device into Chest Subcutaneous Tissue and Fascia, Percutaneous Approach (ICD-10-PCS; 2017-03-02 09:45)
PROC: 02HV33Z Insertion of Infusion Device into Superior Vena Cava, Percutaneous Approach (ICD-10-PCS; 2017-03-02 09:45)
DX: C34.32 Malignant neoplasm of lower lobe, left bronchus or lung (principal); J18.1 Lobar pneumonia, unspecified organism; N17.0 Acute kidney failure with tubular necrosis; J98.11 Atelectasis; J96.10 Chronic respiratory failure, unspecified whether with hypoxia or hypercapnia; E87.1 Hypo-osmolality and hyponatremia; Z68.41 Body mass index [BMI] 40.0-44.9, adult; J93.9 Pneumothorax, unspecified; I50.9 Heart failure, unspecified; D64.9 Anemia, unspecified; Z99.81 Dependence on supplemental oxygen; E11.65 Type 2 diabetes mellitus with hyperglycemia; J44.9 Chronic obstructive pulmonary disease, unspecified; G25.81 Restless legs syndrome; K21.9 Gastro-esophageal reflux disease without esophagitis; E87.6 Hypokalemia; E66.01 Morbid (severe) obesity due to excess calories; E78.5 Hyperlipidemia, unspecified

== ENCOUNTER 2017-03-09 19:40 | Emergency (ER) | payer MEDICARE, MEDICAID ==
[2017-02-26 13:52] VITALS: BMI 42.9
[~2017-03-09 19:40] MED LIST changes: +BENZONATATE200 MG PO; +IPRAT-ALBUT 0.5-3 ML UPD; +MUCINEX DM ER1 EAC1 PO; +NYSTATIN ORAL SU5 ML PO; +PULMICORT0.5 MG/21 INH
== END 2017-03-09 21:00 | disposition home or self-care (01) ==
LOC: D.ER 19:40
DX: C34.32 Malignant neoplasm of lower lobe, left bronchus or lung (principal); F17.200 Nicotine dependence, unspecified, uncomplicated

== ENCOUNTER 2017-03-21 10:23 | Outpatient (CLI) | payer MEDICARE, MEDICAID ==
[2017-03-21] MEDS ORDERED: PROAIR HFA8.5 GM INH (11:38)
[2017-03-21] MEDS ORDERED: FLUTICASONE PRO16 GM NASAL (11:38)
[2017-03-21] MEDS ORDERED: PRAVASTATIN SOD10 MG PO (11:38)
[2017-03-21] MEDS ORDERED: DIOVAN320 MG PO (11:39)
[2017-03-21] MEDS ORDERED: REQUIP1 MG PO (11:39)
[2017-03-21] MEDS ORDERED: COMBIVENT RESPIM4 GM INH (11:40)
[2017-03-21 11:46] VITALS: BP 133/104; BMI 44.3
--- NOTE | 2017-03-21 14:15 | NUR ---
PREOP MEDICATIONS ADMINISTERED. FIRST UNIT PRBC'S TRANSFUSING. VSS. PT SITTING WITH HOB ELEVATED. CALL LIGHT AND DRINK WITHIN REACH. WILL MONITOR.
--- NOTE | 2017-03-21 15:00 | NUR ---
PT CONTINUES TO SIT UP WITH HOB ELEVATED. VSS, SEE TRANSFUSION SHEET. PRBC'S CONTINUE TO TRANSFUSE WITHOUT DIFFICULTY. WILL CONTINUE TO MONITOR.
--- NOTE | 2017-03-21 15:50 | NUR ---
1545 PT SLEEPING, BLOOD INFUSING VIA PORT, PATENT.
--- NOTE | 2017-03-21 17:58 | NUR ---
1620 SUPPER VINICIO SERVED. 1655 ATE 80% LASIX GIVEN PRE 2ND, UNIT. 2ND UNIT CHECKED AT BEDSIDE BY THIS NURSE AND UGO ANDRADE RN, INITIATED AT 50/CC/HR BY ALARIS PUMP. RATE TO BE INCREASED IN INCREMENTS PT. TOLERATES. 1755. PT. HAS TOLERATED BLOOD WITHOUT PROBLEMS THUS FAR. RATE AT 125/CC/HR, RATE INCREASED TO 175/CC/HR. PT. HAS BEEN UP TO BR. PT HAS A VISITOR. IV SITE PATENT.
--- NOTE | 2017-03-21 19:24 | NUR ---
1814 ASSISSTED UP TO BR VOIDS QS. 191 BLOOD HAS COMPLETED. DENIES PROBLEMS WITH TRANSFUSION. LINE BEING FLUSED WITH NS.
--- NOTE | 2017-03-21 20:24 | NUR ---
2010 POST V.S. CHECK GOOD. IV HAS BEEN DEACCESSED. PT UP TO BR VOIDS. DC INSTS REVIEWED RELEASED IN WC. HAS SERVICENOW ADMINISTRATOR DEVELOPER HOME.
== END 2017-03-21 20:20 | disposition home or self-care (01) ==
LOC: D.OPS 10:23
DX: D64.81 Anemia due to antineoplastic chemotherapy (principal)

== ENCOUNTER 2017-04-27 03:33 | Inpatient (IN) | payer MEDICARE, MEDICAID ==
[~2017-04-27] VITALS: Ht 160 cm; Wt 120.2 kg
[2017-04-27] VITALS (34 sets, daily range): BP systolic 109–139; BP diastolic 63–87; BMI 45.5
[~2017-04-27 03:33] MED LIST changes: +FLUTICASONE PRO16 GM NASAL; +PRAVASTATIN SOD10 MG PO
[2017-04-27 04:33] LABS: BASOPHILS 0 % (0-2); EOSINOPHILS 0.3 % (0-7); HEMATOCRIT 29.4 % (36.0-48.0); HEMOGLOBIN 9.3 g/dL (12-16); IMMATURE GRANULOCYTES 0.2 % (0-5); LYMPHOCYTES 25.6 % (15-50); MCH 27.2 pg (26.0-34.0); MCHC 31.6 g/dL (31.0-37.0); MEAN PLATELET VOLUME 8.9 fL (7.4-10.4); MONOCYTES 2.2 % (2-11); NEUTROPHILS 71.7 % (40-80); RBC 3.42 10x6/uL (4.00-5.40); RDW 20.4 % (11.5-14.5); WBC 5.9 10x3/uL (4.8-10.8)
[2017-04-27 04:35] LABS: PLATELET COUNT 126 10x3/uL (130-400)
[2017-04-27 04:38] LABS: INR 0.99 (0.85-1.17); PROTIME 12.7 SECONDS (11.6-15.0)
[2017-04-27 05:03] LABS: ALBUMIN 2.9 g/dL (3.4-5.0); ALKALINE PHOSPHATASE 90 U/L (46-116); ALT (SGPT) 102 U/L (10-68); BILIRUBIN - TOTAL 0.18 mg/dL (0.2-1.3); CALC OSMOLALITY 284 mosm/kg (275-300); CALCIUM 8.4 mg/dL (8.5-10.1); CARBON DIOXIDE 25.6 mmol/L (21.0-32.0); CHLORIDE - SERUM 100 mmol/L (98-107); POTASSIUM - SERUM 3.7 mmol/L (3.5-5.1); PROTEIN - SERUM 6.8 g/dL (6.4-8.2); SODIUM 137 mmol/L (136-145); UREA NITROGEN 18 mg/dL (7-18); eGFR NON AFRICAN AMERICAN 58 mL/min (90-120)
[2017-04-27 05:06] LABS: GLUCOSE 269 mg/dL (74-106)
[2017-04-27 05:15] LABS: CKMB 0.8 U/L (0.0-3.6); CREATINE KINASE 44 UL (21-215); PRO BNP 313 pg/mL (0-125)
[2017-04-27 05:19] LABS: ACETAMINOPHEN < 0.2 ug/mL (10.0-30.0); TROPONIN-I 0.017 ng/mL (0.000-0.060)
[2017-04-27 06:32] LABS: UDS - AMPHET NEGATIVE QUAL (NEGATIVE); UDS - BARB NEGATIVE QUAL (NEGATIVE); UDS - BENZO NEGATIVE QUAL (NEGATIVE); UDS - COCAINE NEGATIVE QUAL (NEGATIVE); UDS - OPIATE POSITIVE QUAL (NEGATIVE); UDS - PCP NEGATIVE QUAL (NEGATIVE); UDS - THC POSITIVE QUAL (NEGATIVE)
[2017-04-27 06:46] LABS: AMORPHOUS SEDIMENT >1+ /lpf (NONE SEEN); APPEARANCE CLOUDY (CLEAR); BACTERIA MODERATE /hpf (NONE SEEN); BILIRUBIN NEGATIVE (NEGATIVE); COLOR YELLOW (YELLOW); EPITHELIAL CELLS 0-5 /hpf (0-5); GLUCOSE 50 mg/dL (NEGATIVE); GRANULAR CAST 0-5 /lpf (NONE SEEN); HYALINE CAST OCC /lpf (NONE SEEN); KETONE NEGATIVE (NEGATIVE); MUCUS <1+ /lpf (NONE SEEN); NITRITE NEGATIVE (NEGATIVE); PROTEIN 1+ mg/dL (NEGATIVE); RED CELLS - URINE 0-5 /hpf (0-5); SPECIFIC GRAVITY 1.025 (1.005-1.020); UROBILINOGEN NORMAL (NORMAL); WHITE CELLS - URINE 0-5 /hpf (0-5)
--- NOTE | 2017-04-27 16:14 | NUR ---
RESTING COMFORTABLY ON DIPRIVAN AT 40 MCG/KG/MIN. LEVOPHED OFF AT 3 PM. BLOOD PRESSURE MAINTAINED ABOVE 100 SYSTOLIC. AWAKES EASILY AT TIMES, OBEYS COMMANDS MOVES ALL EXTREMITIES ON REQUEST. HAND B2B APPOINTMENT SETTER STRONG AND EQUAL. WALKER CATH PATENT. NO DISTRESS. SMALL SOFT BROWN STOOL. MONITOR SR. SCD ON LOWER LEGS WORKING PROPERLY. HEAD OF BED ELEVATED 30 DEGREES.
--- NOTE | 2017-04-27 19:15 | NUR ---
ASSESSMENT COMPLETE. S1S2. NSR SHOWING ON MONITOR. RR VIA MECHANICAL VENT; DIMINISHED BILATERALLY IN LOWER LOBES. PT AROUSES TO SPEECH. ABLE TO KNOD FOR COMMUNICATION; ABLE TO WRITE ON PAD WITH PEN; DIFFICULTY READING BUT ABLE TO READ. SCD IN PLACE. WALKER CATH IN PLACE. PERRLA.
--- NOTE | 2017-04-27 20:31 | NUR ---
FAMILY AT BEDSIDE. UPDATE GIVEN. QUESTIONS ANSWERED.
--- NOTE | 2017-04-27 22:56 | NUR ---
REASSESSMENT COMPLETE. NO ACUTE CHANGES FROM PREVIOUS ASSESSMENT.
[2017-04-28] VITALS (25 sets, daily range): BP systolic 107–150; BP diastolic 57–79; Ht 160 cm; Wt 120.2 kg
--- NOTE | 2017-04-28 01:30 | NUR ---
PT SEDATED ON VENT. RESTING; EYES CLOSED. VSS. NO DISTRESS NOTED. WILL CONTINUE TO MONITOR.
--- NOTE | 2017-04-28 03:10 | NUR ---
REASSESSMENT COMPLETE. NO ACUTE CHANGES FROM PREVIOUS ASSESSMENT. AFEBRILE. WILL CONTINUE TO MONITOR. SEE FLOW SHEETS FOR DETAILS.
[2017-04-28 04:48] LABS: BASOPHILS 0.3 % (0-2); EOSINOPHILS 0.3 % (0-7); HEMATOCRIT 24.2 % (36.0-48.0); HEMOGLOBIN 7.8 g/dL (12-16); LYMPHOCYTES 12.1 % (15-50); MCH 27.4 pg (26.0-34.0); MCHC 32.2 g/dL (31.0-37.0); MCV 84.9 fL (80.0-100.0); MEAN PLATELET VOLUME 9.3 fL (7.4-10.4); MONOCYTES 0.8 % (2-11); NEUTROPHILS 86.5 % (40-80); PLATELET COUNT 113 10x3/uL (130-400); RBC 2.85 10x6/uL (4.00-5.40); RDW 21.2 % (11.5-14.5)
[2017-04-28 05:03] LABS: ANION GAP 10.5 mmol/L (8-16); CARBON DIOXIDE 26.8 mmol/L (21.0-32.0); CREATININE - SERUM 0.8 mg/dL (0.6-1.3); MAGNESIUM - SERUM 1.2 mg/dL (1.8-2.4); POTASSIUM - SERUM 3.3 mmol/L (3.5-5.1)
--- NOTE | 2017-04-28 08:29 | NUR ---
0800 AM ASSESMENT IS COPLETE .. SEE FLOW SHEET FOR FINDINGS.. KCL RIDER INITIATED FOR POTASIUM INTO LEFT INFUSAPORT.. BS 120 WITHOUT VISITORS AT THIS TIME..
--- NOTE | 2017-04-28 15:18 | NUR ---
0900 WITHOUT CHANGES.. FAMILY IN TO SEE PT UPDATE GIEN.. 0930 DR SALDIVAR IN UNIT SPOKE WITH FAMILY.. 0945 DR SAUCEDO IN TO SEE PT 1030 REPOSITIONED,, 1200 FAMILY IN TO SEE PT.. UPDATED.. PT CONTINUES WITH SEDATION AND ORALLY INTUBATED ON THE VENT 1230 WITHOUTINSULIN COVER AFTER FSBS 1400 FAMILY GONE FROM THE BEDSIDE..
--- NOTE | 2017-04-28 17:22 | NUR ---
1600 WITHOUT VISITORS AT THIS TIME.. TUBE FEEDING STARTED PER ORDER AND I AND O COMPLETE AT THIS TIME... 1700 PT IS WITH 99.7 TEMP ROOM COOLED DOWN AND BLANKET REMAOVED FROM THE BED..
--- NOTE | 2017-04-28 18:33 | NUR ---
1800 PT IS WITHOUT CHANGES AT THIS TIME
--- NOTE | 2017-04-28 19:25 | NUR ---
REPORT REC'D AND CARE ASSUMED, REC'D PT ON VENT VIA 8.0 ETT TAPED SECURELY @ 22CM LIPLINE, VENT SETTINGS PER FLOWSHEET, PT AROUSABLE TO DEEP STIMULI, DOES NOT FOLLOW COMMANDS, LEFT UPPER CHEST INFUSAPORT WITH DIPRIVAN @ 50MCG/KG/MIN AND D5NS @ 125CC/HR, OGT TAPED SECURELY TO ETT, PLACEMENT VERIFIED VIA SM AIR BOLUS AUSCULTATED OVER EPIGASTRIM, PULMOCARE INFUSING @ 20CC/HR, RESIDUAL CHECKED 5CC NOTED, LEFT A/C PIV SALINE LOCKED, GENERALIZED EDEMA, WALKER PATENT DRAINING CONCENTRATED URINE, BILAT SCD'S INTACT AND ON, PPP, BILAT SOFT WRIST RESTRAINTS INTACT.
--- NOTE | 2017-04-28 20:45 | NUR ---
EVENING MEDS GIVEN, NO VISITORS IN AT THIS TIME
--- NOTE | 2017-04-28 23:00 | NUR ---
REASSESSMENT COMPLETED, ORAL CARE PROVIDED AND PT PLACED ON BACK ARMS ELEVATED ON PILLOWS, HEELS BRIDGED, VSS, WILL MONITOR FOR CHANGES.
[2017-04-29] VITALS (24 sets, daily range): BP systolic 106–164; BP diastolic 30–96
--- NOTE | 2017-04-29 00:30 | NUR ---
ROUTINE MEDS GIVEN ORDERED, PT REPOSITIONED FOR COMFORT, FSBS 239, 8 UNITS REGULAR INSULIN GIVEN PER S/S, WILL CONT TO MONITOR CLOSELY FOR CHANGES.
--- NOTE | 2017-04-29 02:00 | NUR ---
NO CHANGES IN STATUS AT THIS TIME
--- NOTE | 2017-04-29 03:08 | NUR ---
REASSESSMENT COMPLETE PER FLOW SHEET. VSS. NO NEW CHANGES AT THIS TIME. RADIOLOGY AT BEDSIDE. REPOSITIONED UP IN BED ON BACK ORAL ENDOTRACH CARE ADM. WILL CONTINUE TO MONITOR
--- NOTE | 2017-04-29 03:20 | NUR ---
REASSESSMENT COMPLETED, NO CHANGES FROM PREVIOUS ASSESSMENT, PT RESTING ON VENT EYES CLOSED, RESP 20, BP STABLE, WILL CONT TO MONITOR CLOSELY FOR CHANGES.
--- NOTE | 2017-04-29 03:30 | NUR ---
RADIOLOGY @ BS FOR AM CXR, VSS.
[2017-04-29 04:35] LABS: BASOPHILS 0 % (0-2); EOSINOPHILS 0 % (0-7); HEMATOCRIT 24.1 % (36.0-48.0); HEMOGLOBIN 7.9 g/dL (12-16); IMMATURE GRANULOCYTES 0.3 % (0-5); LYMPHOCYTES 2.7 % (15-50); MCH 27.5 pg (26.0-34.0); MCHC 32.8 g/dL (31.0-37.0); MEAN PLATELET VOLUME 9.4 fL (7.4-10.4); MONOCYTES 0 % (2-11); RBC 2.87 10x6/uL (4.00-5.40); WBC 3.3 10x3/uL (4.8-10.8)
[2017-04-29 04:36] LABS: PLATELET COUNT 136 10x3/uL (130-400)
[2017-04-29 04:45] LABS: ANION GAP 14.5 mmol/L (8-16); CALCIUM 8.5 mg/dL (8.5-10.1); CARBON DIOXIDE 21.8 mmol/L (21.0-32.0); CREATININE - SERUM 0.8 mg/dL (0.6-1.3); POTASSIUM - SERUM 3.3 mmol/L (3.5-5.1)
--- NOTE | 2017-04-29 05:20 | NUR ---
PT REPOSITIONED UP IN BED ONTO RIGHT SIDE SUPPORTED WITH PILLOWS, NO VISITORS IN THIS AM.
--- NOTE | 2017-04-29 06:00 | NUR ---
AM MEDS GIVEN ORDERED, NO VISITORS IN AT THIS TIME, PT REPOSITIONED ONTO RIGHT SIDE SUPPORTED WITH PILLOWS, ORAL CARE PROVIDED
--- NOTE | 2017-04-29 07:00 | NUR ---
REC'D REPORT AND RESUMED CARE, VENTILATION TO ETT AND SECURED, 40% FIO2 IN USE, SAT 98%, LEFT INFUSA PORT IN PLACE IVF PER FLOWSHEET, PROPAL IN USE AT 40 MCG, LEFT AC PIV SL, ORAL CARE AND SUCTION COMPLETED, WALKER TO GRAVITY WITH CONCENTRATED YELLOW DRAINAGE TO BAG, SCD'S B/L, ASSESSMENT COMPLETE PER FLOWSHEET, REPOSITIONED TO LEFT SIDE WITH PILLOW PROPPED TO BACK AND HEELS FLOATED
--- NOTE | 2017-04-29 09:15 | NUR ---
AM NEDS GIVEN PER MAR FLOWSHEET
--- NOTE | 2017-04-29 10:00 | NUR ---
SEDATION OFF, CHANGED TO CPAP ON VENT BY RT
--- NOTE | 2017-04-29 10:10 | NUR ---
NUTRITION F/U CHART REVIEWED. PT REMAINS ON VENT. DIPRIVAN OFF. TOLERATING PULMOCARE AT 20 CC/HR. IF DIPRIVAN REMAINS OFF, RECOMMEND INCREASE TUBE FEEDS TO 30 CC/HR WITH GOAL RATE 40 CC/HR. RD FOLLOWING
--- NOTE | 2017-04-29 11:00 | NUR ---
CONTINUES TO CPAP, VSS, AWAKE AND FOLLOWS COMMANDS, NO OTHER ACUTE CHANGE FROM PREVIOUS ASSESSMENT
--- NOTE | 2017-04-29 12:00 | NUR ---
FAMILY IN ROOM, CALLED TO BEDSIDE, STATES PATIENT WANTS TO BE REPOSITIONED, CHANGED TO RIGHT SIDE WITH PILLOW PROPPED TO BACK AND HEELS FLOATED
--- NOTE | 2017-04-29 14:07 | NUR ---
Unable to assess dc plans at this time - patient remains on vent, missed family during visitation.
[2017-04-29 14:19] LABS: FUNGUS STAIN Final report (())
--- NOTE | 2017-04-29 14:30 | NUR ---
EXTUBATED WITHOUT DIFFICULTY, 2L NC O2 INTITATED, ORAL CAR AND SUTION COMPLETED
--- NOTE | 2017-04-29 15:00 | NUR ---
NO ACUTE CHANGE FROM PREVIOUS ASSESSMENT, VSS, DENIES PAIN, REPOSITIONED TO BACK PER REQUEST, NO OTHER NEEDS AT THIS TIME
[2017-04-29 16:11] LABS: AFB SPECIMEN PROCESSING Concentration (())
--- NOTE | 2017-04-29 17:30 | NUR ---
FSBS 81, POPSICLE TO BEDSIDE
--- NOTE | 2017-04-29 20:15 | NUR ---
RECEIVED CARE OF PT, ASSESSMENT PER FLOWSHEET. PT SITTING UP IN BED VISITING WITH FRIENDS, CONVERSING EASILY, DENIES ANY NEEDS AT THIS TIME, WILL MONITOR.
--- NOTE | 2017-04-29 20:30 | NUR ---
PT SISTER CALLED, PASSWORD PROVIDED, UPDATE GIVEN. INFORMED PT PER SISTER'S REQUEST OF PHONE CALL.
--- NOTE | 2017-04-29 23:30 | NUR ---
REASSESSMENT PER FLOWSHEET. PLACED PT ON BEDPAN PER REQUEST. VOIDED SMALL, SEMI-FORMED, BROWN BM. PERICARE PROVIDED, POSITIONED FOR COMFORT.
[2017-04-30] VITALS (18 sets, daily range): BP systolic 134–187; BP diastolic 59–99
--- NOTE | 2017-04-30 01:06 | NUR ---
ASSISTED PT ONTO BEDPAN, VOIDED MODERATE AMOUNT OF SEMI-FORMED BROWN STOOL. PERICARE PROVIDED AND ASSISTED TO COMFORTABLE POSITION, BED LOW, CALL LIGHT IN REACH.
--- NOTE | 2017-04-30 03:30 | NUR ---
PLACED PT ON BEDPAN PER REQUEST, SOFT BM YIELDED. PERICARE AND COMPLETE LINEN CHANGE DONE, ASSISTED PT TO COMFORTABLE POSITION, HR REMAINS SR ON CM, BED LOW, CALL LIGHT IN REACH.
[2017-04-30 04:23] LABS: BASOPHILS 0 % (0-2); EOSINOPHILS 0 % (0-7); HEMATOCRIT 28.1 % (36.0-48.0); HEMOGLOBIN 9.3 g/dL (12-16); IMMATURE GRANULOCYTES 0.6 % (0-5); LYMPHOCYTES 3.9 % (15-50); MCH 28.1 pg (26.0-34.0); MCHC 33.1 g/dL (31.0-37.0); MCV 84.9 fL (80.0-100.0); MEAN PLATELET VOLUME 9.5 fL (7.4-10.4); MONOCYTES 0.8 % (2-11); NEUTROPHILS 94.7 % (40-80); PLATELET COUNT 140 10x3/uL (130-400); RBC 3.31 10x6/uL (4.00-5.40); RDW 20.4 % (11.5-14.5)
[2017-04-30 04:38] LABS: CALCIUM 8.9 mg/dL (8.5-10.1); CHLORIDE - SERUM 106 mmol/L (98-107); CREATININE - SERUM 0.6 mg/dL (0.6-1.3); MAGNESIUM - SERUM 1.8 mg/dL (1.8-2.4); SODIUM 140 mmol/L (136-145); UREA NITROGEN 8 mg/dL (7-18); eGFR NON AFRICAN AMERICAN > 90 mL/min (90-120)
[2017-04-30 04:42] LABS: WBC 4.9 10x3/uL (4.8-10.8)
[2017-04-30 04:43] LABS: CALC OSMOLALITY 282 mosm/kg (275-300); CARBON DIOXIDE 27.6 mmol/L (21.0-32.0); GLUCOSE 201 mg/dL (74-106); POTASSIUM - SERUM 3.9 mmol/L (3.5-5.1)
--- NOTE | 2017-04-30 05:56 | NUR ---
AM LABS REVIEWED, NOTHING TO TREAT PER ELECTROLYTE PROTOCOL. PT SITTING UP IN BED WATCHING TV IN NO APPARENT DISTRESS. VSS
--- NOTE | 2017-04-30 07:00 | NUR ---
REC'D REPORT AND RESUMED CARE, AAO, VSS, DENIES PAIN, ASSESSMENT COMPLETE PER FLOWSHEET, CALL LIGHT IN CICI RREPOSITIONED TO RIGHT SIDE WITH PILLOW PROPPED TO BACK AND HEELS FLOATED
--- NOTE | 2017-04-30 10:00 | NUR ---
AM MEDS GIVEN PER MAR FLOWSHEET
--- NOTE | 2017-04-30 11:00 | NUR ---
INCONTINENT OF DIARRHEA STOOL, SKINCARE AND LINEN CHANGE COMPLETED, ASSESSMENT COMPLETED PER FLOWSHEET, NO ACUTE CHANGE FROM PREVIOUS
--- NOTE | 2017-04-30 15:00 | NUR ---
ASSESSMENT COMPLETE, INCONTINENT OF STOOL, URINE TO PERIPAD, CATHETER TUBING KINKED, SKINCARE AND LINEN CHANGE COMPLETED, REPOSITIONED UP AND TO BACK WITH HEELS FLOATED
--- NOTE | 2017-04-30 17:45 | NUR ---
TRANSFERRED VIA BED TO 2128,PRIMARY NURSEBOZENA AT BEDSIDE, SET UP SUCTION, RESTARTED IVF, AAO, DCALLIGHT IN REACH, NO NEEDS AT THIS TIME
[2017-05-01] VITALS: BP 151/71
[2017-05-01 04:00] VITALS: BP 174/75
[2017-05-01 06:22] LABS: BASOPHILS 0 % (0-2); EOSINOPHILS 0 % (0-7); HEMATOCRIT 29.2 % (36.0-48.0); HEMOGLOBIN 9.6 g/dL (12-16); IMMATURE GRANULOCYTES 0.3 % (0-5); LYMPHOCYTES 10.5 % (15-50); MCH 27.9 pg (26.0-34.0); MCHC 32.9 g/dL (31.0-37.0); MCV 84.9 fL (80.0-100.0); MEAN PLATELET VOLUME 9.5 fL (7.4-10.4); NEUTROPHILS 85.2 % (40-80); PLATELET COUNT 117 10x3/uL (130-400); RBC 3.44 10x6/uL (4.00-5.40); RDW 20.3 % (11.5-14.5)
[2017-05-01 06:23] LABS: WBC 3.2 10x3/uL (4.8-10.8)
[2017-05-01 07:08] LABS: CALC OSMOLALITY 281 mosm/kg (275-300); CALCIUM 9.1 mg/dL (8.5-10.1); CARBON DIOXIDE 28.8 mmol/L (21.0-32.0); CHLORIDE - SERUM 102 mmol/L (98-107); CREATININE - SERUM 0.7 mg/dL (0.6-1.3); GLUCOSE 164 mg/dL (74-106); POTASSIUM - SERUM 3.4 mmol/L (3.5-5.1); SODIUM 140 mmol/L (136-145); eGFR NON AFRICAN AMERICAN 87 mL/min (90-120)
[2017-05-01 07:09] LABS: MAGNESIUM - SERUM 1.3 mg/dL (1.8-2.4); UREA NITROGEN 11 mg/dL (7-18)
--- NOTE | 2017-05-01 07:36 | NUR ---
PT IN BED WATCHING TV. NO DISTRESS NOTED. WILL CONT TO MONITOR.
[2017-05-01 08:24] VITALS: BP 125/74
[2017-05-01 12:11] VITALS: BP 141/61
[2017-05-01 17:02] VITALS: BP 141/72
--- NOTE | 2017-05-01 19:45 | NUR ---
PT RESTING IN BEDSIDE CHAIR. ALERT/ORIENTED. AARON PATENT TO BESIDE DRAIN BAG. O2 @ 4L/NC. SOB WME. PIV SALINE LOCKED TO LFA. ACCESSED LEFT CHEST WALL INFUSAPORT WITH D5.45NS @ 125ML/HR. NO NEEDS VOICED. IS EATING SNACKS AND WATCHING TV. CPOC. CALL LIGHT IN REACH.
[2017-05-01 21:07] VITALS: BP 143/48
[2017-05-01] MEDS ORDERED: CYCLOBENZAPRINE10 MG PO (21:26)
[2017-05-02 00:58] VITALS: BP 155/80
--- NOTE | 2017-05-02 02:30 | NUR ---
IV ABT UP AND INFUSING. PT DECLINED FSBS STATING SHE HAD BEEN SNACKING AND IT WOULD GIVE A HIGH RESULT BUT WILL GO DOWN ON IT'S OWN. WILL CHECK AT 0400.
[2017-05-02 05:19] VITALS: BP 147/68
[2017-05-02 05:49] LABS: BASOPHILS 0 % (0-2); EOSINOPHILS 0 % (0-7); HEMATOCRIT 30.4 % (36.0-48.0); HEMOGLOBIN 9.8 g/dL (12-16); IMMATURE GRANULOCYTES 1.1 % (0-5); LYMPHOCYTES 8.8 % (15-50); MCH 27.5 pg (26.0-34.0); MCHC 32.2 g/dL (31.0-37.0); MCV 85.4 fL (80.0-100.0); MONOCYTES 5.2 % (2-11); NEUTROPHILS 84.9 % (40-80); PLATELET COUNT 112 10x3/uL (130-400); RBC 3.56 10x6/uL (4.00-5.40)
[2017-05-02 05:56] LABS: WBC 4.4 10x3/uL (4.8-10.8)
[2017-05-02 06:05] LABS: ANION GAP 11.2 mmol/L (8-16); CARBON DIOXIDE 31.6 mmol/L (21.0-32.0); MAGNESIUM - SERUM 1.4 mg/dL (1.8-2.4)
[2017-05-02 06:09] LABS: CREATININE - SERUM 0.9 mg/dL (0.6-1.3)
[2017-05-02 06:10] LABS: POTASSIUM - SERUM 2.8 mmol/L (3.5-5.1)
--- NOTE | 2017-05-02 07:45 | NUR ---
PATIENT UP IN CHAIR WATCHING TELEVISION AT THIS TIME. NO PROBLEMS NOTED AT THIS TIME. PATIENT DENIES ANY NEEDS OR PAIN. CALL LIGHT AND WATER ARE WITHIN REACH.
[2017-05-02 08:02] VITALS: BP 167/87
--- NOTE | 2017-05-02 09:58 | NUR ---
UP IN CHAIR WITH CALL LIGHT IN REACH. IV PATENT. WILL CONT. PLAN OF CARE.
[2017-05-02 13:05] VITALS: BP 197/85
[2017-05-02 16:31] VITALS: BP 169/82
--- NOTE | 2017-05-02 18:10 | NUR ---
PATIENT IS IN BED RESTING AT THIS TIME. IV FLUIDS INFUSING AT 125ML HR AND OXYGEN VIA NASAL CANNULA 4L. NO SIGNS OR SYMPTOMS OF DISTRESS NOTED AND PATIENT DENIES ANY PAIN AT THIS TIME. CALL LIGHT AND WATER ARE WITHIN REACH.
[2017-05-02 19:00] VITALS: BP 183/85
--- NOTE | 2017-05-02 19:35 | NUR ---
PT SITTING ON SIDE OF BED. 4L O2 NC. PT ASKS FOR COFFEE. D5NS INFUSING AT 125 TO LEFT IP. PT DENIES ANY OTHER NEEDS. NO S/S OF DISTRESS. WILL CPOC
[2017-05-03] VITALS: BP 138/62
--- NOTE | 2017-05-03 00:20 | NUR ---
PT ASLEEP. RESPIRATIONS EVEN AND UNLABORED. NO S/S OF DISTRESS. BED LOW AND CALL LIGHT IN REACH. WILL CPOC
[2017-05-03 04:00] VITALS: BP 100/76
--- NOTE | 2017-05-03 06:00 | NUR ---
PT SITTING ON SIDE OF BED.PT DENIES ANY NEEDS. FSBS OF 141 NO COVERAGE NEEDED. PT HAS NO S/S OF DISTRESS. BED LOW AND CALL LIGHT IN REACH. WILL CPOC
[2017-05-03 07:26] LABS: ANION GAP 9.3 mmol/L (8-16); CALCIUM 8.5 mg/dL (8.5-10.1); CARBON DIOXIDE 32.5 mmol/L (21.0-32.0); CREATININE - SERUM 0.9 mg/dL (0.6-1.3)
[2017-05-03 07:45] LABS: POTASSIUM - SERUM 2.8 mmol/L (3.5-5.1)
--- NOTE | 2017-05-03 07:45 | NUR ---
PATIENT IN BED RESTING AT THIS TIME. NO COMPLAINTS OF PAIN OR DISCOMFORT. NO SIGNS OR SYMPTOMS OF DISTRESS NOTED AT THIS TIME. CALL LIGHT AND WATER ARE WITHIN REACH.
[2017-05-03 08:52] VITALS: BP 145/67
--- NOTE | 2017-05-03 09:40 | NUR ---
UP AMBULATING WITH PT ASSIST.
[2017-05-03 12:12] VITALS: BP 164/72
--- NOTE | 2017-05-03 13:19 | NUR ---
Nutrition Follow Up: Pt is eating 50% meal avg on a regular diet. +BM 05/01/17. Wt stable. Labs reviewed - Glucose elevated. Meds noted including Solu-Medrol, Lasix. Will change diet to diabetic to aid in glucose control. RD following.
[2017-05-03 16:11] VITALS: BP 160/82
[2017-05-03] MEDS ORDERED: PREDNISONE10 MG PO (16:31)
--- NOTE | 2017-05-03 17:56 | NUR ---
DISCHARGE INSTRUCTIONS REVIEWED WITH PATIENT. IV REMOVED CATHETER INTACT. NO PROBLEMS NOTED AT THIS TIME. PATIENT LEAVES FACILITY AT THIS TIME IN WHEELCHAIR WITH FAMILY VIA PRIVATE TRANSPORTATION
--- NOTE | 2017-05-12 14:06 | OP ---
PATIENT NAME: EMILY BARRERA MEDICAL RECORD: [id number] :44 LOCATION:D. D.2129 ADMISSION DATE:04/27/17 SURGEON: LI SALDIVAR MD DATE OF OPERATION: 04/27/2017 PROCEDURE: Fiberoptic bronchoscopy. INDICATION: Hemoptysis. Ms. 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 Fiberoptic bronchoscopy was carried out to inspect the airway as well as to look for the bleeding site as well as to clear the mucus blood clot from the stent. DESCRIPTION OF PROCEDURE: The patient already orally intubated, obtaining conscious sedation, the bronchoscope was passed through the ET tube. The main scott was sharp. The right main bronchus of the subsegment to the right upper lobe, right lower lobe within normal range. There was fresh blood on the right side. The left main bronchus was almost full with a fresh frothy blood. The stent was patent. There was total occlusion below the stent and the bleeding was oozing from the tumor below the stent. Washing was obtained and sent for routine culture and sensitivity and fungus and using the cold saline, stopped the bleeding from the left lower lobe. Overall, the patient tolerated the procedure very well. We will send the specimen for culture and sensitivity, AFB, fungus, and cytology. Overall, the patient tolerated the procedure very well. TRANSINT:[id number] Voice Confirmation ID: [id number] DOCUMENT ID: [id number] LI SALDIVAR MD at 1406 CC: [id number] DICTATION DATE: 04/27/17 1108 ICU RN: 04/27/17 1533 DIS IN 05/03/17 [id number] [place] [address]
--- NOTE | 2017-05-12 14:06 | CN ---
PATIENT NAME:EMILY BARRERA MEDICAL RECORD: [id number] : 44 LOCATION:D. D.2129 ADMIT DATE: 04/27/17 ACCOUNT: [id number] CONSULTING PHYSICIAN: LI SALDIVAR MD REFERRING PHYSICIAN: BONIFACIO SAUCEDO MD DATE OF CONSULTATION: 04/27/2017 REQUESTING PHYSICIAN: Bonifacio Saucedo MD REASON FOR CONSULTATION: Hemoptysis, acute hypoxic hypercapnic respiratory failure. HISTORY OF PRESENT ILLNESS: Ms. Barrera is a 71-year-old female who was diagnosed with squamous cell carcinoma of the left lower lobe bronchus with almost total occlusion. The bronchus was stented by Dr. Elliott in February, but the lung never expanded. Last night, she came to the ER with hemoptysis and acute hypoxic hypercapnic respiratory failure. The patient was orally intubated. The history was now taken by reviewing the patient's note and talking to the nursing staff and talking to the patient's daughter. REVIEW OF SYSTEMS: Mainly in the history of present illness. PAST MEDICAL HISTORY: 1. COPD. 2. Asthma. 3. 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 4. Hypertension. 5. Coronary artery disease. 6. Diabetes mellitus. 7. Chronic hypoxic respiratory failure. 8. Anxiety. PAST SURGICAL HISTORY: 1. Cholecystectomy. 2. She is status post stent placement in the left main bronchus. ALLERGIES: She is allergic to SULFA, ADHESIVE, AMITRIPTYLINE, AND NIACIN. MEDICATIONS: [employer] was reviewed. PERSONAL AND SOCIAL HISTORY: The patient is an ex-smoker. She is a nondrinker. FAMILY HISTORY: Significant for diabetes mellitus. PHYSICAL EXAMINATION: GENERAL: Now, the patient is orally intubated and sedated. VITAL SIGNS: The blood pressure is 139/85, pulse is 73, respiration is 15. She is on mechanical ventilation, SIMV, tidal volume of 550, oxygen 50% and she is saturating 96% to 97%. HEENT: Conjunctivae pink, sclerae nonicteric. NECK: Supple. No JVD. CHEST: There is absent breath sounds on the left side, crackles, right side is clear. HEART: Rhythm regular, normal sound, no murmur. ABDOMEN: Soft, bowel sounds present. No hepatosplenomegaly. CONSULT REPORT [id number] EMILY BARRERA RECTAL: Deferred. EXTREMITIES: No cyanosis, no clubbing, no pedal edema. SKIN: Warm, normal turgor. CENTRAL NERVOUS SYSTEM: The patient is orally intubated and sedated. LABORATORY DATA: ABG: The pH is 7.27, CO2 is 59.2, pO2 is 200, bicarbonate is 27. This was done on 100% oxygen. Chemistry: Sodium 137, potassium 3.7, BUN is 18, creatinine is 1, glucose 269. CBC: WBC 5.9, hemoglobin 9.3, hematocrit 29.4, the platelet count is 126. IMPRESSION: 1. Natsp-mp-fjvdsad hypoxic hypercapnic respiratory failure. 2. Hemoptysis secondary to squamous cell carcinoma of her lung. 3. Squamous cell carcinoma of the left lung, stage IV with endobronchial lesion. 4. Pneumonia with associated atelectasis of the left lung. 5. Chronic obstructive pulmonary disease acute exacerbation. 6. Anemia. RECOMMENDATION: 1. We will continue the mechanical ventilation. We will proceed with fiberoptic bronchoscopy. Follow up for any bleeding site. 2. Racemic epi. 3. Zosyn, Levaquin and vancomycin to cover for hospital-acquired pneumonia as well as obstructive pneumonia. 4. Albuterol ipratropium nebulizer, Brovana and budesonide nebulizer. 5. Discuss with family in length. The daughter wants her to make her DNR. We will proceed with fiberoptic bronchoscopy. Follow up labs and ABGs and chest radiograph. 6. GI and DVT prophylaxis. Discussed with Dr. Saucedo. Dr. Saucedo, thank you for involving me in the care of Ms. Barrera. The critical care time is 50 minutes. TRANSINT:[id number] Voice Confirmation ID: [id number] DOCUMENT ID: [id number] LI SALDIVAR MD at 1406 CC: [id number] DICTATION DATE: 04/27/17 110 MANAGER SPECIAL EVENTS: 04/27/17 1505 DIS IN 05/03/17 [facility] [address] [place] [address]
[2017-05-27 15:20] LABS: FUNGUS MYCOLOGY CULTURE Final report (())
[2017-06-15 11:18] LABS: ACID FAST CULTURE Negative (()); ACID FAST SMEAR Negative (())
== END 2017-05-03 17:57 | disposition home or self-care (01) | DRG 208 ==
LOC: D.ER 03:33 → D.ICU 07:15 → D.M2 04-30 18:44
PROVIDERS: Emergency Medicine; Internal Medicine Pulmonary Disease; ADMIT Family Medicine
PROC: 0BH17EZ Insertion of Endotracheal Airway into Trachea, Via Natural or Artificial Opening (ICD-10-PCS; principal; 2017-04-27)
PROC: 5A1945Z Respiratory Ventilation, 24-96 Consecutive Hours (ICD-10-PCS; 2017-04-27)
PROC: 0T9B70Z Drainage of Bladder with Drainage Device, Via Natural or Artificial Opening (ICD-10-PCS; 2017-04-27)
PROC: 0BB38ZX Excision of Right Main Bronchus, Via Natural or Artificial Opening Endoscopic, Diagnostic (ICD-10-PCS; 2017-04-27)
DX: J96.02 Acute respiratory failure with hypercapnia (principal); J18.9 Pneumonia, unspecified organism; J44.1 Chronic obstructive pulmonary disease with (acute) exacerbation; J44.0 Chronic obstructive pulmonary disease with (acute) lower respiratory infection; J98.11 Atelectasis; C34.32 Malignant neoplasm of lower lobe, left bronchus or lung; N39.0 Urinary tract infection, site not specified; Z68.42 Body mass index [BMI] 45.0-49.9, adult; T17.590A Other foreign object in bronchus causing asphyxiation, initial encounter; J96.01 Acute respiratory failure with hypoxia; E11.65 Type 2 diabetes mellitus with hyperglycemia; I25.10 Atherosclerotic heart disease of native coronary artery without angina pectoris; D64.9 Anemia, unspecified; F41.9 Anxiety disorder, unspecified; I48.91 Unspecified atrial fibrillation; Z99.81 Dependence on supplemental oxygen; I11.0 Hypertensive heart disease with heart failure; I50.9 Heart failure, unspecified; E66.01 Morbid (severe) obesity due to excess calories; D69.6 Thrombocytopenia, unspecified; Z66 Do not resuscitate; R74.8 Abnormal levels of other serum enzymes; Z87.891 Personal history of nicotine dependence; M62.830 Muscle spasm of back

== ENCOUNTER 2017-05-24 12:27 | Emergency (ER) | payer MEDICARE, MEDICAID ==
[2017-04-28 10:41] VITALS: BMI 46.7
[~2017-05-24 12:27] MED LIST changes: +PREDNISONE10 MG PO
[2017-05-24 13:56] LABS: BASOPHILS 0.1 % (0-2); EOSINOPHILS 1.6 % (0-7); HEMATOCRIT 30.6 % (36.0-48.0); HEMOGLOBIN 9.8 g/dL (12-16); IMMATURE GRANULOCYTES 0.9 % (0-5); LYMPHOCYTES 7.5 % (15-50); MCH 29.7 pg (26.0-34.0); MCV 92.7 fL (80.0-100.0); MEAN PLATELET VOLUME 10.2 fL (7.4-10.4); MONOCYTES 8.9 % (2-11); RDW 21.9 % (11.5-14.5)
[2017-05-24 13:58] LABS: PLATELET COUNT 226 10x3/uL (130-400)
[2017-05-24 14:06] LABS: INR 1.08 (0.85-1.17); PROTIME 13.6 SECONDS (11.6-15.0)
[2017-05-24 14:13] LABS: ALBUMIN 2.8 g/dL (3.4-5.0); ALKALINE PHOSPHATASE 67 U/L (46-116); ALT (SGPT) 12 U/L (10-68); CALC OSMOLALITY 265 mosm/kg (275-300); CALCIUM 9.5 mg/dL (8.5-10.1); CARBON DIOXIDE 33.4 mmol/L (21.0-32.0); CHLORIDE - SERUM 94 mmol/L (98-107); CREATININE - SERUM 0.7 mg/dL (0.6-1.3); GLUCOSE 140 mg/dL (74-106); POTASSIUM - SERUM 3.7 mmol/L (3.5-5.1); PROTEIN - SERUM 6.6 g/dL (6.4-8.2); SODIUM 133 mmol/L (136-145); UREA NITROGEN 7 mg/dL (7-18); eGFR NON AFRICAN AMERICAN 87 mL/min (90-120)
[2017-05-24 14:17] LABS: APPEARANCE CLEAR (CLEAR); BILIRUBIN NEGATIVE (NEGATIVE); COLOR YELLOW (YELLOW); GLUCOSE NEGATIVE (NEGATIVE); KETONE NEGATIVE (NEGATIVE); NITRITE NEGATIVE (NEGATIVE); PROTEIN 2+ mg/dL (NEGATIVE)
[2017-05-24 14:19] LABS: BACTERIA FEW /hpf (NONE SEEN); RED CELLS - URINE 0-5 /hpf (0-5)
[2017-05-24 14:20] LABS: MUCUS >1+ /lpf (NONE SEEN)
[2017-05-24 14:21] LABS: CREATINE KINASE 15 UL (21-215); MAGNESIUM - SERUM 1.3 mg/dL (1.8-2.4); PRO BNP 357 pg/mL (0-125); TROPONIN-I < 0.017 ng/mL (0.000-0.060)
== END 2017-05-24 17:23 | disposition home or self-care (01) ==
LOC: D.ER 12:27
PROVIDERS: Nurse Practitioner Family
DX: N39.0 Urinary tract infection, site not specified (principal); C34.90 Malignant neoplasm of unspecified part of unspecified bronchus or lung; R50.9 Fever, unspecified